=== PATIENT | female | born 1955 | race Caucasian/White ===

== ENCOUNTER 2017-07-31 12:43 | Emergency (ER) | payer OTHER ==
[~2017-07-31] VITALS: Ht 175.3 cm; Wt 113.4 kg
== END 2017-07-31 14:09 | disposition home or self-care (01) ==
LOC: ED 12:43
DX: M79.641 Pain in right hand (principal); J44.9 Chronic obstructive pulmonary disease, unspecified; F17.200 Nicotine dependence, unspecified, uncomplicated; Z88.0 Allergy status to penicillin; W23.0XXA Caught, crushed, jammed, or pinched between moving objects, initial encounter
CPT/HCPCS: 73130; 99283

== ENCOUNTER 2018-11-21 21:24 | Inpatient (IN) | payer OTHER ==
[~2018-11-21] VITALS: Ht 175.3 cm; Wt 128.1 kg
--- NOTE | 2018-11-22 00:32 | NUR ---
admitted at 2345 from ed via stretcher, helped tranfers, up to br w minimum of help, and using cane, O2 4LNC, sob with exertion noted. Received a jenni tx, Coop with admit questions, states she is allergic to all man made meds and polyester, nuts and carrots. COPD PACKAGE given. states she is too tired to have me explain it to her" will continue to reinforce teaching. Pt is homeless, strong body odor, declines a shower. thick, unkept skin
--- NOTE | 2018-11-22 02:00 | NUR ---
WATCHING TV, O2 4L NC, THICK NASAL DISCHARGE PRESENT, MOIST PRODUCTIVE COUGH OF CLEAR THICK PHLEGM NOTED, SOB WITH EXERTION. TOLERATING FLUIDS WELL.
--- NOTE | 2018-11-22 03:57 | NUR ---
RESTING, EYES CLOSED, O2 4L/NC IN PLACE, CPOX TURNED OFF AT HER REQUEST. NO RESP DISTRESS NOTED. PT WAS INCONTINENT OF LIQUID BM EARLIER, DID OWN PERICARE. BED LINEN CHANGED, CLEAN GOWN GIVEN. TOLERATED SANDWICH BOX AND FLUIDS W/O PROBLEMS. TURN SELF IN BED
--- NOTE | 2018-11-22 04:39 | NUR ---
CURRENTLY RESTING, TURNS SELF IN BED. O2 4L NC INPLACE. SOB PRESENT WITH EXERTION EARLIER IN SHIFT. RECEIVED NEB TX. MOIST PRODUCTIVE COUGH PRESENT. PT WAS INCONTINENT OF BOWEL EARLIER. POOR PERSONAL HYGIENE AND STRONG BODY ODOR PRESENT.
--- NOTE | 2018-11-22 07:46 | NUR ---
PT SITTING UP IN BED. ALERT AND ORIENTED, CONCERNED ABOUT BREAKFAST. NO REPORTS ABOUT PAIN OR NAUSEA.
--- NOTE | 2018-11-22 09:49 | NUR ---
PT REFUSES TO DISCUSS QUIT SMOKING EDUCATIONS. SHE IS SITTING UP IN BED ALERT AND ORIENTED. WHEN ASKED IF SHE WOULD LIKE A SHOWER TODAY SHE SAID, "NO!, I DONT NEED ONE." WILL CHECK BACK THIS AFTERNOON ON TAKING A SHOWER. PT DOES NOT REPORT ANY PAIN OR DISCOMFORT, ONLY REQUEST IS COFFEE.
--- NOTE | 2018-11-22 13:20 | NUR ---
R.T. IN TO PLACE OXYGEN ON HUMIDIFIER
--- NOTE | 2018-11-22 14:36 | NUR ---
PT SITTING UP IN BED. REQUESTS A FRIUT SNACK, GAVE PT ROOM PHONE AND MENU WITH INSTRUCTIONS TO HOW TO CALL [facility]. [facility] STAFF INTO PT ROOM TO TAKE DINNER ORDER. PT HAD NO OTHER REQUESTS AT THIS TIME.
--- NOTE | 2018-11-22 16:53 | NUR ---
PT HAS HAD GOOD APPETITE, QUANTITY SUFFICIENT URINE OUT. SHE WAS GIVEN A MG RIDER TODAY FOR LAB OF 1.6 MG. INDEPENDENT IN ROOM. REMAINS ON 4L OXYGEN N.C. WITH HUMIDIFIER. HAS FINE CRACKLES IN BASES AND EXP. WHEEZES THROUGHOUT BILATERLY. HAD CT TO FURTHER INVESTIGATE A NODULE NOTED IN LUNG. PER PT HAS MULTIPLE ALLERGIES AND SPECIAL NEEDS IN REGARDS TO DIET. SHE HAS REFUSED ALL ATTEPMTS BY STAFF TO PROVIDE SMOKING CESSATION EDUCATION. SHE ALSO REFUSED OFFER TO SHOWER TWICE. PT IS HOMELESS.
--- NOTE | 2018-11-22 19:20 | NUR ---
RECEIVED REPORT FROM NU DOLL. PT AWAKE, DRAWING A PICTURE, WHILE SITTING ON HER BED. DENIES NEEDS AT THIS TIME.
--- NOTE | 2018-11-22 20:59 | EKG ---
[facility] [address] [place], [place] [address] Signed Sinus rhythm with premature atrial complexes Low voltage QRS Cannot rule out Anterior infarct , age undetermined Abnormal ECG No previous ECGs available Confirmed by NIKOLE ZAMORA DO ([id number]) on 11/22/2018 8:58:54 PM Electronically Signed By: NIKOLE ZAMORA DO 11/22/18 2059 PATIENT NAME: GABRIELEMARLAMARTHA STANTON Electrocardiogram DATE OF : 53 PHYSICIAN: NIKOLE ZAMORA DO REPORT #: [id number] REPORT IS CONFIDENTIAL AND NOT TO BE RELEASED WITHOUT AUTHORIZATION
--- NOTE | 2018-11-22 21:00 | NUR ---
ASSESSEMENT COMPLETE. PT DOING SUDOKU PUZZLE, REQUESTED MORE, REQUEST GRANTED. PT WITH FRESH DECAF COFFEE, NOTED REDENED UMBILICUS, WHICH NYSTATIN CREAM HAS BEEN ORDERED. ODOR NOTED WELL. PT CONCERNED ABOUT HOW THIS COULD HAPPEN, SHE "NEVER SWEATS". RT IN PREVIOUSLY GIVING NEB TREATMENTS. PT OFFERS NO OTHER NEEDS.
--- NOTE | 2018-11-22 23:43 | NUR ---
PT LAYING ON HER RIGHT SIDE, OCCASSIONAL COUGH HEARD. PREFERS LIGHTS ON, AND CURTAIN OPEN.
--- NOTE | 2018-11-23 02:00 | NUR ---
PT CURRENTLY LAYING ON HER RIGHT SIDE, EYES CLOSED RESP EVEN AND UNLABORED. NEAR MIDNIGHT, HEARD TOLIET FLUSH; NEAR 0100 HEARD PT COUGHING, MOIST NONPRODUCTIVE. RT IN NEAR MIDNIGHT TO ADM. NEB TREATMENT, BUT PT WAS WITH EYES CLOSED, "SLEEPING" HE STATED.
--- NOTE | 2018-11-23 05:16 | NUR ---
WOKE PT VITALS WELL DAILY WEIGHT. AMBULATING W CANE, STEADY, O2 IN PLACE AT 4 L W 941 SATS. COMPLAINS OF A "BAD NIGHT", YET WHEN RN STATES EVERY TIME SHE WAS CHECKED ON SHE WAS SLEEPING, SHE SAID I HAD TO PEE 3 TIMES. (900 IN HAT), CURRENTLY REQUESTING COFFEE.
--- NOTE | 2018-11-23 06:10 | NUR ---
PT INDEPENDENT IN ROOM, USING BATHROOM AND REPOSITIONING. 4L NONCHRONIC O2 WITH SATS IN THE HIGH 80'S-LOW 90'S. MOIST NONPRODUCTIVE COUGH HEARD OFF AND ON THROUGH THE NIGHT. NEBS AT 0000, 0400 WERE HELD D/T PT SLEEPING. PT WITH BODY ODOR, RED UMBILICUS AREA, TREATED WTIH NYSTATIN POWDER; PHARMACY SHOULD BE ABLE TO PROVIDE THE CREAM TODAY. PT DRANK SEVERAL CUPS DECAF COFFEE THIS SHIFT, AND WILL CONTINUE TO DRINK COFFEE OFTEN SHE GETS IT. SHE IS HOMELESS, LIVES IN HER CAR, SMOKES "NATURAL" CIGARETTES, AND IS NOT INTERESTED IN SMOKING CESSATION.
--- NOTE | 2018-11-23 08:04 | NUR ---
PATIENT SITTING UP IN BED, REPORT FROM NIGHT RN. PATIENT STATES " I HAVE TO KEEP MY MIND BUSY, FOR A 63 YEAR OLD IT HAS TO STAY BUSY" PATIENT APPEARED EXCITED FOR BREAKFAST TRAY. LUNG SOUNDS DIMINISHED THROUGHOUT, HAD SLEPT WELL THROUGHOUT NIGHT. ENCOURAGED PATIENT TO USE IS. FULL BODY ASSESMENT DONE. PLAN FOR DAY TO PROVIDE PATIENT WITH SHOWER.
--- NOTE | 2018-11-23 10:00 | NUR ---
SPOKE WITH PATIENT IN ROOM. PATIENT STATES SHE HAS LIVED IN HER CAR SINCE 12/2016. STATES SHE IS ON SSI. STATES SHE HAS HER CELL PHONE, TWO STORAGE UNITS AND CAR INSURANCE AND DOESN'T HAVE ANY LEFT OVER FOR HOUSING. SHE STATES SHE HAS A SON IN THE AREA, AND SOME OTHER FAMILY. DENIES THAT SHE CAN STAY WITH ANY OF THEM. STATES THEY DONT HAVE ROOM OR THE MONEY TO HELP HER. STATES SHE HAS SEEN DR MCCRAY IN THE PAST, BUT NOT FOR SOME TIME AND DOES NOT WANT TO RETURN TO HIS CARE. SHE IS INTERESTED IN GETTING INTO THE CLINIC HERE AT [facility]. SHE STATES SHE DOESN NOT USE MEDICATIONS. SHE TAKES SOME VITAMINS. SHE DENIES HAVING OR NEEDING A NEBULIZER OR OXYGEN IN THE PAST. SHE STATES SHE HAS HELP WITH FOOD FROM [facility], USED TO GET $97/MONTH, BUT WENT DOWN FOR NOVEMBER TO $46/MONTH. SHE STATES SHE DOES NOT NEED A CANE, OR ANY OTHER DEVICES FOR AMBULATION. STATES SHE WENT TO [facility] TO SEE ABOUT LIVING THERE IN THE PAST. DID NOT KNOW ABOUT [facility]. STATES SHE STILL SMOKES, IS NOT INTERESTED IN QUITTING AT THIS TIME. SHE STATES SHE DOES GO STAY AT [facility] WHEN [facility] IS OPEN. DISCUSSED HER WORKING WITH CHW AFTER DISCHARGE. SHE STATES SHE WOULD LIKE TO MEET HER FIRST. DISCUSSED THE SERVICES SHE COULD HELP WITH. SHE IS INTERESTED IN THIS POSSIBILITY. PATIENT STATES SHE HAS A LOT OF EXPENSIVE THINGS IN HER STORAGE UNITS. DISCUSSED IF SHE CONSIDERS SELLING THINGS TO HAVE MONEY TO HELP TAKE CARE OF HER. SHE STATES "NO WAY, IT'S FAMILY HEIRLOOMS". PATIENT STATES SHE HAS BEEN TO [facility] BEFORE. STATES SHE HAD TO REPLACE THE MOTOR IN HER CAR RECENTLY SO SHE COULD HAVE HEAT. [facility] CAR IS DRIV[facility] AT THIS TIME. WILL HAVE CHW START WORKING WITH PATIENT AND WILL FOLLOW FOR DISCHARGE THROUGH CASE MANAGMENT.
--- NOTE | 2018-11-23 13:00 | NUR ---
THIS RN TAKING OVER PT CARE AT THIS TIME. UPON ARRIVAL TO INTRODUCE, PT IS LAYING ON HER SIDE RESTING IN BED WITH NO C/O PAIN. NO QUESTIONS, CONCERNS. DENIES ANY NEEDS TO BE MET AT THIS TIME. CALL LIGHT WITHIN REACH. FALL PRECAUTION IN PLACE. WILL CONTINUE TO MONITOR.
--- NOTE | 2018-11-23 14:15 | NUR ---
ASSESSMENT COMPLETED. PT SITTING UP IN HER BED UPON MY ENTRANCE- PT HAS JUST RETURNED FROM THE BATHROOM WHERE SHE URINATED. PT IS A/O X4, NO C/O PAIN, NO N/V. WHEN I ASKED HOW SHE FEELS ABOUT HER BREATHING, SHE STATES THE "IT FEELS PRETTY GOOD." PT STILL SOMEWHAT TACHYPNEIC AND ON 2 L/MIN O2 VIA NC. LUNGS SOUND DIMINISHED THROUGHOUT ALL LOBES. PT IS ANXIOUS- EMOTIONAL SUPPORT GIVEN WELL THERAPEUTIC COMMUNICATION. PT IS INDEPENDENT ON HER FEET IN THE ROOM. ACTIVE BOWEL SOUNDS. LAST BM WAS YESTERDAY. PT DENIES ANY FURTHER NEEDS TO BE MET AT THIS TIME. SOLUMED GIVEN THROUGH PIV WHICH FLUSHES WELL WITH GOOD BLOOD RETURN. EDUCATION GIVEN ON IMPORTANCE OF HYGIENE WHILE IN HOSPITAL BUT PT IS REFUSING MY ASSISTANCE AT THIS TIME WITH HELP GETTING CLEAN. WILL RETRY LATER. CALL LIGHT WITHIN REACH. WILL CONTINUE TO MONITOR.
--- NOTE | 2018-11-23 16:11 | NUR ---
PT SITTING UP IN BED WITH 2 L/MIN O2 VIA NC IN PLACE. PT REMAINS PLEASANT AND COOPERATIVE- SHE'S LESS ANXIOUS THAN SHE WAS 2 HOURS AGO. SHE DENIES ANY NEEDS TO BE MET. NO PAIN AND SHE STATES THAT HER BREATHING "IS OKAY." CALL LIGHT WITHIN REACH. WILL CONTINUE TO MONITOR.
--- NOTE | 2018-11-23 18:26 | NUR ---
PT REMAINS PLEASANT, SITTING UP IN BED WITH NO QUESTIONS, CONCERNS OR REQUESTS. SHE STATES THAT SHE FEELS LIKE HER BREATHING "IS FINE." SHE'S STILL NOT WANTING TO TAKE A SHOWER DESPITE OUR STAFF EFFORTS. CALL LIGHT WITHIN REACH. FALL PRECAUTIONS IN PLACE. WILL CONTINUE TO MONITOR.
--- NOTE | 2018-11-23 19:29 | NUR ---
RECIEVED CHANGE OF SHIFT REPORT FROM ACOSTA DOLL. PATIENT LAYING AWAKE IN BED. WHITE BOARD UPDATED. FRESH COFFEE BROUGHT TO PATIENT PER PATIENT REQUEST. NO MORE NEEDS AT THIS TIME.
--- NOTE | 2018-11-23 19:30 | NUR ---
RECEIVED REPORT FROM SHARMILA LOUIE CHARGE. PT IN BED ON PHONE. NO NEEDS AT THIS TIME.
--- NOTE | 2018-11-23 21:55 | NUR ---
ASSESSMENT COMPLETE. SCHEDULED MEDICATIONS ADMINISTERED PER MAR ORDER. PATIENT DENIES PAIN, SOB, DIFFICULTY BREATHING OR CHEST PAIN. SCHEDULED NYSTATIN CREAM APPLIED TO UMBILICAL REGION. IV ASSESSED TO BE PATENT, WNL. ENCOURAGED PATIENT TO USE IS AND ACCAPELLA, PATIENT EXPRESSED THAT SHE USES DEVICES REGULARLY. DIMINISHED, FINE CRACKLES IN BASES OF LUNGS, ENCOURAGED I.S. PATIENT DRAWING PICTURES WITH PEN AND PAPER AT BEDSIDE. FRESH COFFEE BROUGHT TO PATIENT PER PATIENT REQUEST. CALL LIGHT WITHIN REACH. NO MORE NEEDS AT THIS TIME.
--- NOTE | 2018-11-24 00:33 | NUR ---
ROUNDED ON PATIENT RESTING IN BED, LAYING ON LEFT SIDE, RESPIRATORY RATE IS EVEN AND UNLABORED. CALL LIGHT WITHIN REACH. POSSESSIONS AT BEDSIDE.
--- NOTE | 2018-11-24 02:20 | NUR ---
ROUNDED ON PATIENT. PATIENT RESTING ON LEFT SIDE, RESIRATORY RATE IS EVEN AND UNLABORED. CALL LIGHT WITHIN REACH. POSSESSIONS AT BEDSIDE.
--- NOTE | 2018-11-24 03:48 | NUR ---
ROUNDED ON PATIENT RESTING IN BED WITH EYES CLOSED, RESPIRATORY RATE EVEN AND UNLABORED. NO SIGN OF TENSING OR GRIMACING. HAT IN TOLIET EMPTIED. CALL LIGHT WITHIN REACH.
--- NOTE | 2018-11-24 05:10 | NUR ---
ROUNDED ON PATIENT FOR ASSESSMENT. PATIENT DENIES PAIN, SOB, DIFFICULTY BREATHING OR CHEST PAIN. SINTA RECREATIONAL THERAPIST IN ROOM TO OBTAIN VITALS, INTAKE AND OUTPUT AND DAILY WEIGHT. ENCOURAGED PATIENT TO USED INCENTIVE SPIROMETER, DIMINISHED/FINE CRACKLES NOTED IN BASES OF LUNGS. PATIENT DENIES NUMBNESS AND TINGLING IN EXTREMITIES. FRESH COFFEE BROUGHT TO PATIENT. THERAPEUTIC COMMUNICATION PROVIDED TO PATIENT PATIENT WAS UPSET ABOUT FINDING A WAY TO GET HAVE HER PERSONAL CLOTHES CLEANED, CHARGE NURSE NOTIFED OF PATIENTS CONCERNS. CALL LIGHT WITHIN REACH. NO MORE NEEDS AT THIS TIME.
--- NOTE | 2018-11-24 06:00 | NUR ---
PATIENT SLEPT THROUGHTOUT SHIFT. 2L VIA NC. INDEPENDENT IN ROOM WITH CANE. SCHEDULED NEB TREATMENTS. REDNESS IN UMBILLICUS, SCHEDULED NYSTATIN CREAM PROVIDED. DAILY WEIGHT. REGULAR DIET. IS AND ACCAPELLA AT BEDSIDE.
--- NOTE | 2018-11-24 06:46 | NUR ---
rounded on patient for medication adminstration per dec order. fresh water brought to patient. patient exhibited congested cough. call light within reach. no more needs at this time.
--- NOTE | 2018-11-24 07:40 | NUR ---
0720 Report recieved from Ankita DOLL. Pt sitting up in her bed with her call light and personal items within reach.
--- NOTE | 2018-11-24 10:45 | NUR ---
MED REC COMPLETE
--- NOTE | 2018-11-24 11:23 | NUR ---
Pt resting in her bed doing work puzzles at this time. Sat 92 to 94% on 2l via nc with humidification. O2 decreased to 1l. Pt states "my breathing feels great".
--- NOTE | 2018-11-24 11:31 | NUR ---
PT REQUESTED MORE PUZZLES. FOUND MORE, AND HAD SHARMILA LOUIE GIVE THEM TO HER. WILL CONTINUE TO LOOK FOR MORE.
--- NOTE | 2018-11-24 12:10 | NUR ---
Pt sleeping and her sat is 97% on 1l via nc. O2 turned off at this time.
--- NOTE | 2018-11-24 12:17 | NUR ---
PT ENCOURAGED TO AMBULATE IN HALLWAY, PT DECLINED, STATED THAT SHE WOULD WALK AFTER SHE FINISHED HER NAP.
--- NOTE | 2018-11-24 12:32 | NUR ---
PT ON RA, SLEEPING SOUNDLY, OXYGEN SATURATION LEVEL 92-94% ON RA.
--- NOTE | 2018-11-24 15:10 | NUR ---
SAT 90-91% ON ROOM AIR AT REST. PT WALKED TO THE END OF THE [place]ENT[place] AND SET IN A WC AT WHICH TIME HER SAT WAS 88% AND INCREASED TO 90-91 IN ABOUT 30 SECONDS. PT WALKED BACK TO HER ROOM AND HER SAT WAS 87% AND INCREASED BACK TO 90% IN ABOUT 30 SECONDS.
--- NOTE | 2018-11-24 18:42 | NUR ---
PT SITTING UP ON BED, COLORING AND WATCHING TV. PROVIDED PT WITH FRESH COFFEE PER HER REQUEST. PT DENIED OTHER NEEDS.
--- NOTE | 2018-11-24 19:10 | NUR ---
RECIEVED REPORT FROM KRISTINA DOLL AND MADELYN DOLL. PATIENT SITTING UP IN BED. CALL LIGHT WITHIN REACH. WHITE BOARD UPDATED. NO MORE NEEDS AT THIS TIME.
--- NOTE | 2018-11-24 19:40 | NUR ---
CHARGE NURSE REPORT RECEIVED. PT SITTING UP IN BED, WORKING ON PUZZLE ON HER PHONE.
--- NOTE | 2018-11-24 20:00 | NUR ---
PUT PT'S BLACK AND WHITE SKIRT INTO A TUB WITH SHAMPOO AND HOT WATER TO WASH THE "POOP" OUT. FAIRLY SOILED IN ONE GENERAL AREA.
--- NOTE | 2018-11-24 21:16 | NUR ---
PT SITTING UP IN BED, VITALS AND I/O COMPLETE. PT ON ROOM AIR, WITH SATS AT 92. UNSURE IF SHE IS GOING TO "KEEP THE SKIRT" SINCE THE "POOP" IS ALL THROUGH THE FIBERS NOW.
--- NOTE | 2018-11-24 21:58 | NUR ---
ASSESSMENT COMPLETE. ROOM AIR. SCHEDULED MEDICATION ADMINSTRATION COMPLETE PER ORDER. SCHEDULED NYSTATIN CREAM APPLIED TO SLIGHTLY PINK UMBILICAL REGION. PATIENT DENIES SOB, DIFFICULTY BREATHING, OR CHEST PAIN. IV ASSESSED TO BE PATENT, WNL. FRESH COFFEE BROUGHT TO PATIENT. CALL LIGHT WITHIN REACH. NO MORE NEEDS AT THIS TIME.
--- NOTE | 2018-11-25 00:25 | NUR ---
ROUNDED ON PATIENT RESTING IN BED ON LEFT SIDE, RESPIRATORY RATE IS EVEN AND UNLABORED. MUSIC PLAYING IN ROOM. CALL LIGHT WITHIN REACH.
--- NOTE | 2018-11-25 00:27 | NUR ---
AISHA GRAF FINISHED WASHING PT SKIRT AND CURRENTLY SKIRT IS HANGING IN SHOWER TO DRY. PT AWARE.
--- NOTE | 2018-11-25 00:48 | NUR ---
V/S AND I&O DONE AND CHARTED. WASHED SOILED SKIRT AND HANGED IN THE BATHROOM. NO OTHER NEEDS AT THE MOMENT.
--- NOTE | 2018-11-25 03:20 | NUR ---
ASSESSMENT COMPLETE. PATIENT DENIES CHEST PAIN, SOB, DIFFICULTY BREATHING. IV ASSESSED TO BE PATENT, WNL. ACTIVE BOWEL TONES. PATIENT EXHIBITED CONGESTED COUGH, THAT IS NONPRODUCTIVE. PATIENT DENIES PAIN. DIMINISHED LUNG SOUNDS IN BASES. [facility]. FRESH COFFEE BROUGHT TO PATIENT. CALL LIGHT WITHIN REACH. NO MORE NEEDS AT TIME.
--- NOTE | 2018-11-25 06:57 | NUR ---
independent in room. room air. pt/ot. regular diet. is and acapella. daily weight. scheduled nystatin cream on light pink umbillical region.
--- NOTE | 2018-11-25 07:27 | NUR ---
RECIEVED BEDSIDE REPORT FROM SHARMILA PACHECO. PT AWAKE, SITTING UP IN BED COLORING. PERSONAL SUPPLIES AND CALL LIGHT IN REACH.
--- NOTE | 2018-11-25 07:42 | NUR ---
PATIENT SITTING UP IN BED, CALL LIGHT IN REACH. PATIENT REFUSED AM CARE, NO OTHER NEEDS AT THIS TIME.
--- NOTE | 2018-11-25 07:56 | NUR ---
CHW CONTACTED [employer] AND THEY HAVE TRIED TO WORK WITH PATIENT MULTIPLE TIMES WITH THE MOVING FORWARD PROGRAM BUT SHE NEVER FOLLOWS THROUGH WITH THE PROCESS AND OR SHOWS UP TO ACCEPT THE HELP. [employer] HAS PROVIDED MULTIPLE RESOURCES TO PATIENT IN THE PAST AND IS WILLING TO HELP PATIENT.
--- NOTE | 2018-11-25 07:56 | NUR ---
CHW MET WITH PATIENT IN INPATIENT ROOM AT [facility]. CHW DISCUSSED PATIENT PAST HISTORY AND THE REASONING FOR PATIENT CURRENTLY LIVING IN A CAR. PATIENT STATED SHE CHOOSES TO LIVE IN A CAR SO HER SON AND GRAND KIDS COULD HAVE A PLACE TO LIVE. SHE DOES NOT WANT TO WORK WITH [employer] AND OR ACCEPT ANY HELP FROM [employer] BECAUSE THEY HELPED HER GRANDDAUGHTER GET TAKEN AWAY BY CPS. PATIENT STATED SHE HAS TO LIVE IN THIS AREA DUE TO HER SON WORKING AND NEEDING TO WATCH HER GRAND KIDS. PATIENT STATED SHE IS ON THE WAITING LIST FOR [facility] [place]. PATIENT STATED SHE DOES NOT WANT TO RENT A ROOM FROM ANYONE AND DOES NOT WANT A STUDIO APARTMENT. SHE SAID SHE CHOOSES TO LIVE IN HER VEHICLE ON HER OWN TERMS. SHE DOES HAVE A HOUSE BUT SHE ALLOWED HER SON AND DAUGHTER IN LAW TO MOVE INTO IT SO HER GRAND KIDS COULD HAVE A HOME.
--- NOTE | 2018-11-25 09:22 | NUR ---
PT ATE 100% OF BREAKFAST. RESTING QUITLY IN BED, AROUSED TO VERBAL STIMULI. PT ON RA, HAS A CONGESTED COUGH, NON PRODUCTIVE. PERSONAL SUPPLIES AND CALL LIGHT IN REACH.
--- NOTE | 2018-11-25 09:50 | NUR ---
PATIENT STATES SHE "FEELS LIKE I CANT EVEN BREATH ANYMORE. EVERYTIME THEY GIVE ME A TREATMENT IT MAKES IT WORSE". PATIENT HAS DEEP DRY COUGH, RN NOTIFIED.
--- NOTE | 2018-11-25 09:53 | NUR ---
PATIENT RESTING IN BED, CALL LIGHT IN REACH. PATIENT COMPLAINS OF CONSISTENT COUGHING. RN NOTIFIED.
--- NOTE | 2018-11-25 10:10 | NUR ---
PT RESTING IN BED, AISHA TURPIN NOTIFIED THIS RN THAT PT'S OXYGEN SATURATION LEVEL WAS IN 80s, THIS RN IN TO ASSESS PT. PT'S OXYGEN SATURATION LEVEL WAS 86% ON RA AT REST. PLACED PT ON 1L O2 VIA NC, OXYGEN SATURATION LEVEL UP TO 90% WITHING APROXIMATLEY 40 SECONDS. PT REPORTED THAT HER BREATHING HAS FELT "WORSE SINCE THAT LAST BREATHING TREATMENT I HAD LAST NIGHT". STATED THAT SHE THINKS THAT THE BREATHING TREATMENTS ARE MAKING HER WORSE. PROVIDED MEDICATION EDUCATION. ENCOURAGED PT TO DISCUSS THIS FURTHER WITH DR. DIANE WHEN HE ROUNDS.
--- NOTE | 2018-11-25 11:07 | NUR ---
DR. DIANE ROUNDED ON PT. PT ON 1L O2 VIA NC, SATURATION LEVEL 93%. PT EXPRESSED THAT SHE FELT THAT HER ALLERGIES ARE BEING EXACERBATED BY THE NEB TREATMENTS, STATED THAT SHE WANTS A BREAK FROM THEM. DR. DIANE TOLD PT THAT SHE CAN DECLINE THIS IF SHE DOES NOT WANT THE TREATMENT WHEN OFFERED, ALTHOUGH HE DID ENCOURAGE PT TO TAKE THEM.
--- NOTE | 2018-11-25 13:20 | NUR ---
PT SITTING UP IN BED, COLORING. OXYGEN SATURATION 90% ON 1L O2 VIA NC.
--- NOTE | 2018-11-25 13:40 | NUR ---
PATIENT SITTING UP IN BED, CALL LIGHT IN REACH. PATIENT IN GOOD MOOD, NO OTHER NEEDS AT THIS TIME.
--- NOTE | 2018-11-25 13:46 | NUR ---
TRIED NUMEROUS TIMES TO CONNECT WITH PT-ALWAYS ON PHONE. WILL CONTINUE TO TRY AGAIN.
--- NOTE | 2018-11-25 16:12 | NUR ---
PT SITTING UP IN BED, PLAYING POWWOWU. PROVIDED PT WITH FRESH COFFEE. PERSONAL SUPPLIES AND CALL LIGHT IN REACH.
--- NOTE | 2018-11-25 16:58 | NUR ---
PT AMBULATED IN HALLWAY FROM ROOM 119 TO PAINTING AT END OF [place]. PRIOR TO BEGINING AMBULATION, PT'S OXYGEN SATURATION LEVEL 97% ON 1L O2 VIA NC, ON REACHING END OF BENT[place], SATURATION LEVEL 94%. PT RESTED THERE FOR APROXIMATELY 4 MINUTES TO GIVE LEGS A REST, THEN AMBULATED BACK TO ROOM 119. ON ARRIVAL TO ROOM 119, SATURATION LEVEL ON 1L 87%, WHICH INCREASED TO 90% AT REST AFTER APROXIMATELY 45 SECONDS. PT RESTING IN BED.
--- NOTE | 2018-11-25 17:21 | NUR ---
PATIENT SITTING UP IN BED PLAYING ON TABLET. CALL LIGHT IN REACH. NO OTHER NEEDS AT THIS TIME.
--- NOTE | 2018-11-25 18:23 | NUR ---
PT SITTING UP IN BED, COLORING. ON 1L O2 VIA NC, SATURATION LEVEL 92%. PT DENIED NEEDS. ATE 100% OF DINNER, TOLERATED WELL. PERSONAL SUPPLIES AND CALL LIGHT IN REACH.
--- NOTE | 2018-11-25 19:43 | NUR ---
pt sitting up in chair, coop with assessment. o2 1lnc, lungs with insp/exp crackles, states that "man made meds/tx/nebs are making her more sick that before she came in to hosp and that she is lying on polyester and her body is not tolerating it. c/o rash over her arms and legs.", reassured w/o success. Rash over body much improved as noted visually as this nurse admitted pt a few days ago. fresh coffee given.
--- NOTE | 2018-11-25 23:00 | NUR ---
SITTING UP IN BED, O2 IN PLACE, NO RESP DISTRESS, FRESH CUP OF COFFEE GIVEN, NO OTHER REQUESTS, INDEPENDENT IN ROOM,
--- NOTE | 2018-11-25 23:31 | NUR ---
V/S AND I&O DONE AND RECORDED.
--- NOTE | 2018-11-26 00:47 | NUR ---
RESTING, NO DISTRESS, O2 IN PLACE. CALL LIGHT WITHIN HANDS REACH
--- NOTE | 2018-11-26 03:59 | NUR ---
RESTING, EYES CLOSED, O2 INPLACE, NOR [place] DISTRESS, CALL LIGHT AT BEDSIDE
--- NOTE | 2018-11-26 05:47 | NUR ---
CURRENTLY RESTING, O2 1LNC, MOIST PRODUCTIVE COUGH PRESENT, LUNGS WITH CRACKLES AND EXP WHEEZING, SOLUMEDRON IV GIVEN. GETS UP INDEPENDENTLY, VOIDING QS. NO C/O PAIN, SCATTERED PINK SPOTS PRESENT OVER LEGS AND ARMS, WERE PRESENT DURING ADMIT BUT DECREASED COLOR PRESENT. CONTINUES TO C/O WANTING TO GO HOME SHE IS GFETTING WORSE FROM THE MAN MADE MEDS SHE HAS BEEN GETTING WHILE HOSPITALIZED. TOLERATING DIET AND FLUIDS W/O PROBLEMS
--- NOTE | 2018-11-26 06:51 | NUR ---
PT TITRATED TO ROOM AIR, SATS 94% 1L NC. AFTER 15-20 MINUTES SATS WERE 92%, PT SITTING UP IN BED PLAYING SOLITAIRE ON HER TABLET.
--- NOTE | 2018-11-26 07:42 | NUR ---
REPORT RECEIVED FROM FISHER MUSSEL RN. PT AWAKE IN BED. AAO. ON RA. RESPIRATIONS ARE EQUAL AND NONLABORED. CALL LIGHT IN REACH. NO NEEDS AT THIS TIME.
--- NOTE | 2018-11-26 09:00 | NUR ---
PT REFUSED BREATHING TREATMENT STATING "IT MAKES MY BREATHING WORSE". CALL LIGHT IN REACH. DENEIS FURTHER NEEDS.
--- NOTE | 2018-11-26 10:23 | NUR ---
PT UP WITH PT. TOLERATING WELL. SATURATION 92% WITH ACTIVITY. BACK TO BED CALL LIGHT IN REACH.
--- NOTE | 2018-11-26 12:44 | NUR ---
ASKED PATIENT IF SHE WOULD LIKE TO TAKE A SHOWER AND SHE SAID IT DEPENDS IF SHE GETS TO GO HOME TODAY. CHANGED HER BED LINENS.
[2018-11-26] MEDS ORDERED: PREDNISONE20 MG PO (13:18)
== END 2018-11-26 15:10 | disposition home or self-care (01) | DRG 189 ==
LOC: ED 21:24 → MS 21:25
PROVIDERS: ADMIT Student in an Organized Health Care Education/Training Program
DX: J96.01 Acute respiratory failure with hypoxia (principal); J44.1 Chronic obstructive pulmonary disease with (acute) exacerbation; E87.3 Alkalosis; Z68.41 Body mass index [BMI] 40.0-44.9, adult; I10 Essential (primary) hypertension; F17.210 Nicotine dependence, cigarettes, uncomplicated; E66.9 Obesity, unspecified; R91.8 Other nonspecific abnormal finding of lung field; R73.9 Hyperglycemia, unspecified; T38.0X5A Adverse effect of glucocorticoids and synthetic analogues, initial encounter; T36.3X5A Adverse effect of macrolides, initial encounter; Y92.239 Unspecified place in hospital as the place of occurrence of the external cause; E87.5 Hyperkalemia; Z88.8 Allergy status to other drugs, medicaments and biological substances; Z59.0 Homelessness; Z88.0 Allergy status to penicillin
CPT/HCPCS: 36415; 71045; 71250; 80048; 80053; 83735; 83880; 84100; 85025; 87502; 93005; 93010; 94640; 94644; 94667; 94668; 94762; 96374; 96375; 96376; 97116; 97162; 97165; 99285-25; 99406; G0378; J0456; J1650; J2930; J3475; J7512

== ENCOUNTER 2021-07-06 10:08 | Emergency (ER) | payer MEDICARE, OTHER ==
[~2021-07-06] VITALS: Ht 175.3 cm; Wt 127.9 kg
[~2021-07-06 10:08] MED LIST: PREDNISONE20 MG PO
--- OUTSIDE RECORDS SUMMARY | 2021-07-06 10:10 | XMS ---
PreManage Notification: MARTHA MULLIGAN Security Commercial Lending Relationship Manager Events No recent Security Events currently on file CRITERIA MET - Group Notification - PDMP CARE PROVIDERS Jim Celine Employment Security Officer/Title Vehicle Service Attendant 05/25/2021-Current PHONE: [phone] JODIE MCCRAY [facility] 11/25/2018-Current PHONE: [phone] Rehana has no Care Guidelines for this patient. Loreta VISIT COUNT (12 MO.) Dot Yo TOTAL 1 NOTE: Visits indicate total known visits. ED/UCC VISIT TRACKING (12 MO.) 07/06/2021 10:09 [facility] [place] TYPE: Emergency COMPLAINT: - LOSS OF APPETITE INPATIENT VISIT TRACKING (12 MO.) No inpatient visits to display in this time frame [email or web address]
[2021-07-06] MEDS ORDERED: ONDANSETRON ODT8 MG PO (11:56)
[2021-07-06] MEDS ORDERED: INLYTA5 MG PO (13:07)
== END 2021-07-06 12:45 | disposition home or self-care (01) ==
LOC: ED 10:08
DX: A08.4 Viral intestinal infection, unspecified (principal); F17.200 Nicotine dependence, unspecified, uncomplicated; Z85.528 Personal history of other malignant neoplasm of kidney; Z90.5 Acquired absence of kidney; Z88.0 Allergy status to penicillin; Z79.52 Long term (current) use of systemic steroids
CPT/HCPCS: 51701; 80053; 81001; 85025; 99285-25; J2405; J7121

== ENCOUNTER 2022-09-19 10:13 | Emergency (ER) | payer MEDICARE, OTHER ==
[~2022-09-19] VITALS: Ht 175.3 cm; Wt 126.5 kg
[~2022-09-19 10:13] MED LIST changes: +INLYTA5 MG PO; +ONDANSETRON ODT8 MG PO
--- OUTSIDE RECORDS SUMMARY | 2022-09-19 10:16 | XMS ---
PreManage Notification: MARTHA MULLIGAN Security Social Service Director Events No recent Security Events currently on file CRITERIA MET - Group Notification CARE PROVIDERS GRISEL MULLINSiatrist Current KEIRY Ann PHONE: [phone] CRAIG PARIS Internal Medicine Current PHONE: [phone] KASHIF RENEE Nurse Practitioner Current PHONE: [phone] Celine Fernandez Soundscriber Mechanic/Implementation Coordinator 08/20/2022-Current PHONE: [phone] JODIE MCCRAY Family Medicine 11/25/2018-Current PHONE: Unknown JAZZMINE MACDONALD Family [facility] Current PHONE: [phone] KYAW TOMLINSON Nurse Practitioner: Family Current PHONE: Unknown LENCHO PATRICK Internal Medicine Current PHONE: [phone] SANDI ESTRADA Nurse Practitioner Current PHONE: [phone] TALISHA HOFFMAN I. Physician Insemination Worker Current PHONE: Unknown CARMINE RICHARDSON Nurse Practitioner Current PHONE: Unknown SALO DENTON Nurse Practitioner Carlos TAPIA PHONE: [phone] CRISTIANO RUTH [employer] Current PHONE: Unknown [facility] PHONE: [phone] PALLAVI SALDIVAR Physician Insemination Worker Current PHONE: Unknown Rehana has no Care Guidelines for this patient. Loreta VISIT COUNT (12 MO.) 2 AMY Yo TOTAL 2 NOTE: Visits indicate total known visits. ED/UCC VISIT TRACKING (12 MO.) 09/19/2022 10:14 AYM Martin TYPE: Emergency COMPLAINT: - EXTREMITY PAIN/INJURY 02/04/2022 11:22 AMY Martin TYPE: Emergency COMPLAINT: - WEAKNESS DIAGNOSES: - Other adjunct faculty for medical terminology (current) drug therapy - Cholecystitis, unspecified - Allergy status to penicillin - Chronic obstructive pulmonary disease, unspecified - Nicotine dependence, unspecified, uncomplicated - Weakness - Contact with and (suspected) exposure to COVID-19 - Acute kidney failure, unspecified - Sepsis, unspecified organism - Other allergy status, other than to drugs and biological substances INPATIENT VISIT TRACKING (12 MO.) 02/04/2022 21:22 [facility] TYPE: General Medicine COMPLAINT: - Acute cholecystitis DIAGNOSES: - Cholecystitis, unspecified - Severe sepsis without septic shock - Sepsis, unspecified organism - Other specified abnormal findings of blood chemistry - Acute cholecystitis [id number]
[2022-09-19] MEDS ORDERED: CABOMETYX60 MG PO (10:28)
[2022-09-19] MEDS ORDERED: HYDROCORTISONE20 MG PO (10:29)
[2022-09-19] MEDS ORDERED: CEPHALEXIN500 M1 PO (13:17)
== END 2022-09-19 14:34 | disposition home or self-care (01) ==
LOC: ED 10:13
PROC: 0T9B70Z Drainage of Bladder with Drainage Device, Via Natural or Artificial Opening (ICD-10-PCS; principal; 2022-09-19)
DX: L03.116 Cellulitis of left lower limb (principal); J44.9 Chronic obstructive pulmonary disease, unspecified; F17.200 Nicotine dependence, unspecified, uncomplicated; Z88.0 Allergy status to penicillin; Z79.899 Other long term (current) drug therapy
CPT/HCPCS: 51701; 73630; 82024; 82570; 84156; 84550; 85025; 99283-25; A9270; J0690

== ENCOUNTER 2024-12-26 16:58 | Inpatient (IN) | payer MEDICARE, OTHER ==
[~2024-12-26] VITALS: Ht 175.3 cm; Wt 123.9 kg
[~2024-12-26 16:58] MED LIST changes: +CABOMETYX60 MG PO; +CEPHALEXIN500 M1 PO; +HYDROCORTISONE20 MG PO
--- OUTSIDE RECORDS SUMMARY | 2024-12-26 17:05 | XMS ---
PreManage Notification: MARTHA MULLIGAN Security Business Planning Analyst Events No recent Security Events currently on file CRITERIA MET - Group Notification CARE PROVIDERS -, [facility]ist: Car Ferry Captain [facility] [place] PHONE: [phone] -[place]- Dentist: Car Ferry Captain [facility] PHONE: [phone] GRISEL MULLINS Slip Cover Estimatoreve Ann PHONE: [phone] CRAIG PARIS Internal Medicine Current PHONE: Unknown KASHIF RENEE Nurse Practitioner Current PHONE: [phone] KYAW TOMLINSON Nurse Practitioner: Family Current PHONE: [phone] LENCHO PATRICK Internal Medicine Current PHONE: [phone] SANDI ESTRADA Nurse Practitioner: Family Current PHONE: [phone] TALISHA HOFFMAN I. Physician Trucking Manager Current PHONE: Unknown CARMINE RICHARDSON Nurse Practitioner Current PHONE: Unknown SALO DENTON Nurse Practitioner Carlos TAPIA PHONE: [phone] CRISTIANO DODGE [facility] Current PHONE: Unknown LALA [facility] Current PHONE: Unknown PALLAVI SALDIVAR Physician Trucking Manager Current PHONE: Unknown Rehana has no Care Guidelines for this patient. Loreta VISIT COUNT (12 MO.) 1 MAY Yo TOTAL 1 NOTE: Visits indicate total known visits. ED/UCC VISIT TRACKING (12 MO.) 12/26/2024 16:59 AMY Tee [place] TYPE: Emergency COMPLAINT: - CHEST PAIN INPATIENT VISIT TRACKING (12 MO.) No inpatient visits to display in this time frame [id number]
[2024-12-26] MEDS ORDERED: ALBUTEROL/IPRATROPIUM 3 ML NEB INH ONE (17:15)
[2024-12-26 17:19] LABS: BASOPHILS 0.5 % (0-2); EOSINOPHILS 2.2 % (0-6); HEMATOCRIT 43.1 % (35.0-50.0); HEMOGLOBIN 14.2 g/dL (12.0-18.0); LYMPHOCYTES 18.7 % (24-44); MCV 81.8 fl (81-99); MONOCYTES 5.2 % (0-12); NEUTROPHILS 73.4 % (39-80); PLATELET COUNT 192 K/uL (140-440); RBC 5.27 M/ul (4.3-5.7)
[2024-12-26 17:41] LABS: ALBUMIN 3.7 g/dL (3.4-5.0); ALBUMIN/GLOBULIN RATIO 0.88 (1.1-2.4); BILIRUBIN, TOTAL 0.7 mg/dL (0.2-1.0); BUN/CREATININE RATIO 15.49 (6.0-28.6); CALCIUM 9.3 mg/dL (8.5-10.1); CREATININE, SERUM 0.71 mg/dL (0.55-1.02); MAGNESIUM 1.6 mg/dL (1.8-2.4); PROTEIN, TOTAL 7.9 g/dL (6.4-8.2)
[2024-12-26] MEDS ORDERED: HYDROmorphone HCL 1 MG/ML SYR IV ONE (19:30)
[2024-12-26] MEDS ORDERED: ondansetron HCL 4 MG/2 ML VIAL IV ONE (19:30)
[2024-12-26] MEDS ORDERED: AZITHROMYCIN 500 MG in DEXTROSE 5% 250 ML IV ONE (21:30)
[2024-12-26] MEDS ORDERED: methylPREDNISolone SOD SUCC 125 MG/2 ML VIAL IV ONE (21:30)
[2024-12-26] MEDS ORDERED: ondansetron HCL 4 MG/2 ML VIAL IV PRN (21:30)
[2024-12-26] MEDS ORDERED: ACETAMINOPHEN 325 MG TAB PO PRN (21:30)
[2024-12-26] MEDS ORDERED: DEXTROSE 5% 250 ML IV ONE (22:22)
[2024-12-26] MEDS ORDERED: BUDESONIDE 0.5 MG/2 ML VIAL INH SCH (22:30)
[2024-12-26] MEDS ORDERED: ALBUTEROL SULFATE 0.083% 3 ML VIAL INH PRN (22:30)
[2024-12-26 22:33] LABS: INFLUENZA B NAA NEGATIVE (NEGATIVE); RESPIRATORY SYNCYTIAL VIR NAA NEGATIVE (NEGATIVE)
[2024-12-26 23:09] VITALS: BP 147/73
[2024-12-26 23:20] LABS: BASE EXCESS, BLOOD GAS 1.4 mmol/L (-2-2); HCO3, BLOOD GAS 32.5 mmol/L (22-26); O2 SATURATION, BLOOD GAS 88.7 % (95.0-100.0); PCO2, BLOOD GAS 85.3 mmHg (35-45); PH, BLOOD GAS 7.19 (7.35-7.45); PO2, BLOOD GAS 64 mmHg (80-100); TOTAL CO2, BLOOD GAS 35.2
[2024-12-26 23:21] LABS: OXYGEN RECEIVED, BLOOD GAS 6L
[2024-12-26] MEDS ORDERED: LORazepam 2 MG/ML VIAL IV PRN (23:45)
[2024-12-27] VITALS (25 sets, daily range): BP systolic 85–172; BP diastolic 48–161
[2024-12-27] MEDS ORDERED: ALBUTEROL/IPRATROPIUM 3 ML NEB INH SCH ×3 (02:00→08:00)
[2024-12-27 05:22] LABS: BASOPHILS 0.1 % (0-2); HEMATOCRIT 40.4 % (35.0-50.0); HEMOGLOBIN 13.2 g/dL (12.0-18.0); LYMPHOCYTES 2.5 % (24-44); MCH 27.1 (27-36); MCHC 32.7 g/dl (30-36); MCV 82.9 fl (81-99); NEUTROPHILS 96.4 % (39-80); PLATELET COUNT 193 K/uL (140-440); RBC 4.88 M/ul (4.3-5.7); RDW 16.5 (10.5-15.0)
[2024-12-27 05:41] LABS: ALBUMIN 3.2 g/dL (3.4-5.0); ALBUMIN/GLOBULIN RATIO 0.8 (1.1-2.4); ANION GAP 9.8 (7-21); BILIRUBIN, TOTAL 0.8 mg/dL (0.2-1.0); BUN/CREATININE RATIO 14.7 (6.0-28.6); CALCIUM 8.8 mg/dL (8.5-10.1); CREATININE, SERUM 0.68 mg/dL (0.55-1.02); MAGNESIUM 1.6 mg/dL (1.8-2.4); POTASSIUM 4.8 mmol/L (3.5-5.1); PROTEIN, TOTAL 7.2 g/dL (6.4-8.2)
[2024-12-27 07:53] LABS: BASE EXCESS, BLOOD GAS 5.6 mmol/L (-2-2); HCO3, BLOOD GAS 34.8 mmol/L (22-26); O2 SATURATION, BLOOD GAS 94.1 % (95.0-100.0); OXYGEN RECEIVED, BLOOD GAS 40%; PCO2, BLOOD GAS 69.9 mmHg (35-45); PO2, BLOOD GAS 67 mmHg (80-100)
[2024-12-27] MEDS ORDERED: MAGNESIUM SULFATE 2 GM/50 ML BAG IV SCH (08:15)
[2024-12-27] MEDS ORDERED: ENOXAPARIN SODIUM 40 MG/0.4 ML SYR SUB-Q SCH (09:53)
[2024-12-27] MEDS ORDERED: methylPREDNISolone SOD SUCC 125 MG/2 ML VIAL IV SCH (09:54)
[2024-12-27] MEDS ORDERED: ACETAMINOPHEN 325 MG TAB PO PRN (10:00)
[2024-12-27] MEDS ORDERED: ondansetron HCL 4 MG/2 ML VIAL IV PRN (10:00)
[2024-12-27] MEDS ORDERED: SODIUM CHLORIDE 0.9% 1,000 ML IV SCH (10:00)
--- NOTE | 2024-12-27 10:04 | EKG ---
[facility] [address] [place] [address] Signed Normal sinus rhythm with sinus arrhythmia Low voltage QRS Incomplete right bundle branch block Cannot rule out Anterior infarct (cited on or before 21-NOV-2018) Abnormal ECG When compared with ECG of 04-FEB-2022 12:14, No significant change was found Confirmed by Daylin Plasencia MD () on 12/27/2024 10:04:04 AM Electronically Signed By: DAYLIN PLASENCIA MD 12/27/24 1004 PATIENT NAME: MARTHA MULLIGAN Electrocardiogram DATE OF : 53 PHYSICIAN: DAYLIN PLASENCIA MD REPORT #: [id number] REPORT IS CONFIDENTIAL AND NOT TO BE RELEASED WITHOUT AUTHORIZATION
[2024-12-27] MEDS ORDERED: PHARMACY RENAL DOSE ADJUSTMENT 1 DOSE MISC PO SCH (12:00)
[2024-12-27 15:35] LABS: PH, VENOUS 7.374 (7.31-7.41)
[2024-12-27] MEDS ORDERED: AZITHROMYCIN 500 MG VIAL ONE (20:28)
[2024-12-27] MEDS ORDERED: MELATONIN 3 MG TAB PO PRN (21:00)
[2024-12-27] MEDS ORDERED: AZITHROMYCIN 500 MG in DEXTROSE 5% 250 ML IV SCH (21:00)
[2024-12-28] VITALS (17 sets, daily range): BP systolic 103–158; BP diastolic 54–101
[2024-12-28 05:29] LABS: BASOPHILS 0.1 % (0-2); HEMATOCRIT 36.8 % (35.0-50.0); HEMOGLOBIN 11.9 g/dL (12.0-18.0); LYMPHOCYTES 3.1 % (24-44); MCH 26.6 (27-36); MCHC 32.4 g/dl (30-36); MCV 82.2 fl (81-99); MONOCYTES 1.2 % (0-12); NEUTROPHILS 95.6 % (39-80); PLATELET COUNT 188 K/uL (140-440); RBC 4.48 M/ul (4.3-5.7); RDW 16.8 (10.5-15.0)
[2024-12-28 05:56] LABS: ALBUMIN/GLOBULIN RATIO 0.79 (1.1-2.4); BILIRUBIN, TOTAL 0.3 mg/dL (0.2-1.0); BUN/CREATININE RATIO 27.14 (6.0-28.6); CALCIUM 9.1 mg/dL (8.5-10.1); CREATININE, SERUM 0.7 mg/dL (0.55-1.02); MAGNESIUM 2.3 mg/dL (1.8-2.4); PHOSPHORUS, INORGANIC 3.4 mg/dL (2.5-4.9); PROTEIN, TOTAL 6.8 g/dL (6.4-8.2)
[2024-12-28] MEDS ORDERED: AZITHROMYCIN 500 MG VIAL ONE (20:21)
[2024-12-29] VITALS (7 sets, daily range): BP systolic 112–144; BP diastolic 60–98
[2024-12-29 05:27] LABS: BASOPHILS 0.1 % (0-2); HEMATOCRIT 38.1 % (35.0-50.0); HEMOGLOBIN 12.2 g/dL (12.0-18.0); LYMPHOCYTES 3.3 % (24-44); MCH 26.5 (27-36); MCHC 32.1 g/dl (30-36); MCV 82.4 fl (81-99); MONOCYTES 1.2 % (0-12); NEUTROPHILS 95.4 % (39-80); PLATELET COUNT 179 K/uL (140-440); RBC 4.62 M/ul (4.3-5.7); RDW 17.2 (10.5-15.0)
[2024-12-29 05:43] LABS: ALBUMIN 3.2 g/dL (3.4-5.0); ALBUMIN/GLOBULIN RATIO 0.84 (1.1-2.4); ANION GAP 8.3 (7-21); BILIRUBIN, TOTAL 0.3 mg/dL (0.2-1.0); BUN/CREATININE RATIO 26.43 (6.0-28.6); CALCIUM 9.3 mg/dL (8.5-10.1); CREATININE, SERUM 0.87 mg/dL (0.55-1.02); POTASSIUM 5.3 mmol/L (3.5-5.1)
[2024-12-29] MEDS ORDERED: HYDROCORTISONE 10 MG TAB PO SCH (09:00)
[2024-12-29] MEDS ORDERED: VENTOLIN HFA18 GM INH (11:12)
[2024-12-29] MEDS ORDERED: BENZONATATE 100 MG CAP PO PRN (15:00)
[2024-12-29] MEDS ORDERED: BENZONATATE100 MG PO (15:01)
[2024-12-29] MEDS ORDERED: MUCINEX600 MG PO (15:01)
== END 2024-12-29 17:25 | disposition home or self-care (01) | DRG 189 ==
LOC: ED 16:58 → CCU 21:35
PROVIDERS: Emergency Medicine; Internal Medicine; ADMIT Family Medicine; ATTEND Family Medicine
PROC: 5A09357 Assistance with Respiratory Ventilation, Less than 24 Consecutive Hours, Continuous Positive Airway Pressure (ICD-10-PCS; principal; 2024-12-26)
DX: J96.01 Acute respiratory failure with hypoxia (principal); J44.1 Chronic obstructive pulmonary disease with (acute) exacerbation; E27.40 Unspecified adrenocortical insufficiency; M84.68XA Pathological fracture in other disease, other site, initial encounter for fracture; C34.90 Malignant neoplasm of unspecified part of unspecified bronchus or lung; F17.210 Nicotine dependence, cigarettes, uncomplicated; Z96.652 Presence of left artificial knee joint; E83.42 Hypomagnesemia; E87.5 Hyperkalemia; Z85.528 Personal history of other malignant neoplasm of kidney; Z90.89 Acquired absence of other organs; Z90.710 Acquired absence of both cervix and uterus; Z88.0 Allergy status to penicillin; Z91.018 Allergy to other foods; Z79.899 Other long term (current) drug therapy; Z99.81 Dependence on supplemental oxygen
CPT/HCPCS: 36415; 36600; 71045; 71260; 80053; 82803; 83735; 83880; 84100; 84484; 85025; 87502; 93005; 93010; 94640; 94660; 94761; 94762; 97161; 97166; 97530; 97535; 99406; A9270; J0456; J1171; J1650; J2060; J2405; J2919; J3475; J7060; Q9967; U0002

== ENCOUNTER 2025-01-08 07:45 | Emergency (ER) | payer MEDICARE, OTHER ==
[~2025-01-08] VITALS: Ht 175.3 cm; Wt 126.4 kg
[~2025-01-08 07:45] MED LIST changes: +BENZONATATE100 MG PO; +MUCINEX600 MG PO; +VENTOLIN HFA18 GM INH
--- OUTSIDE RECORDS SUMMARY | 2025-01-08 07:50 | XMS ---
PreManage Notification: MARTHA MULLIGAN Security Roof Fixer Events No recent Security Events currently on file CRITERIA MET - Group Notification - [facility] - 2 Visits in 30 Days CARE PROVIDERS -, [facility]ist: [employer]ace Current [place] PHONE: [phone] -[place]- Dentist: [place]ace [facility] PHONE: [phone] GRISEL MULLINS Event Marketing Specialisteve Ann PHONE: [phone] CRAIG PARIS Internal Medicine Current PHONE: Unknown KASHIF BEVERLY Nurse Practitioner Current PHONE: [phone] KYAW TOMLINSON Nurse Practitioner: Family Current PHONE: [phone] LENCHO PATRICK Internal Medicine Current PHONE: [phone] SANDI ESTRADA Nurse Practitioner: Family Current PHONE: [phone] TALISHA HOFFMAN I. Physician Prosthodontist Current PHONE: Unknown CARMINE RICHARDSON Nurse Practitioner Current PHONE: Unknown SALO DENTON Nurse Practitioner Carlos TAPIA PHONE: [phone] CRISTIANO Mease [facility] Nursing [facility] Current PHONE: Unknown CULLEN REEVES [facility] Current PHONE: Unknown PALLAVI SALDIVAR Physician Prosthodontist Current PHONE: Unknown Rehana has no Care Guidelines for this patient. Loreta VISIT COUNT (12 MO.) 2 AMY Yo TOTAL 2 NOTE: Visits indicate total known visits. ED/UCC VISIT TRACKING (12 MO.) 01/08/2025 07:45 AMY Tee [place] TYPE: Emergency COMPLAINT: - SHORTNESS OF BREATH 12/26/2024 16:59 AMY Tee [place] TYPE: Emergency COMPLAINT: - CHEST PAIN INPATIENT VISIT TRACKING (12 MO.) 12/26/2024 21:35 AMY Tee [place] TYPE: Critical Care COMPLAINT: - CHEST PAIN DIAGNOSES: - Acquired absence of both cervix and uterus - Acquired absence of both cervix and uterus - Acquired absence of other organs - Acquired absence of other organs - Acute respiratory failure with hypoxia - Acute respiratory failure with hypoxia - Allergy status to penicillin - Allergy status to penicillin - Allergy to other foods - Allergy to other foods - Chronic obstructive pulmonary disease with (acute) exacerbation - Chronic obstructive pulmonary disease with (acute) exacerbation - Dependence on supplemental oxygen - Dependence on supplemental oxygen - Dyspnea, unspecified - Hyperkalemia - Hyperkalemia - Hypomagnesemia - Hypomagnesemia - Malignant neoplasm of unspecified part of unspecified bronchus or lung - Malignant neoplasm of unspecified part of unspecified bronchus or lung - Nicotine dependence, cigarettes, uncomplicated - Nicotine dependence, cigarettes, uncomplicated - Other senior care (current) drug therapy - Other manager intermediate (current) drug therapy - Pathological fracture in other disease, other site, initial encounter for fracture - Pathological fracture in other disease, other site, initial encounter for fracture - Personal history of other malignant neoplasm of kidney - Personal history of other malignant neoplasm of kidney - Presence of left artificial knee joint - Presence of left artificial knee joint - Unspecified adrenocortical insufficiency - Unspecified adrenocortical insufficiency [id number]
[2025-01-08] MEDS ORDERED: methylPREDNISolone SOD SUCC 125 MG/2 ML VIAL IV ONE (08:00)
[2025-01-08 08:14] LABS: BASOPHILS 0.8 % (0-2); EOSINOPHILS 1.8 % (0-6); HEMATOCRIT 41.4 % (35.0-50.0); HEMOGLOBIN 13.5 g/dL (12.0-18.0); LYMPHOCYTES 22.8 % (24-44); MCH 26.9 (27-36); MCHC 32.6 g/dl (30-36); MCV 82.7 fl (81-99); MONOCYTES 6.1 % (0-12); NEUTROPHILS 68.5 % (39-80); PLATELET COUNT 183 K/uL (140-440); RBC 5.01 M/ul (4.3-5.7); RDW 16.8 (10.5-15.0)
[2025-01-08] MEDS ORDERED: HYDROmorphone HCL 1 MG/ML SYR IV PRN (08:30)
[2025-01-08 08:34] LABS: ALBUMIN 3.3 g/dL (3.4-5.0); ALBUMIN/GLOBULIN RATIO 0.94 (1.1-2.4); ANION GAP 6.5 (7-21); BILIRUBIN, TOTAL 0.8 mg/dL (0.2-1.0); BUN/CREATININE RATIO 18.18 (6.0-28.6); CALCIUM 8.7 mg/dL (8.5-10.1); CREATININE, SERUM 0.66 mg/dL (0.55-1.02); POTASSIUM 3.5 mmol/L (3.5-5.1); PROTEIN, TOTAL 6.8 g/dL (6.4-8.2)
[2025-01-08] MEDS ORDERED: HYDROCODON-ACE1 EA10 PO (08:56)
[2025-01-08] MEDS ORDERED: DOXYCYCLINE HY100 MG PO (08:56)
[2025-01-08] MEDS ORDERED: PREDNISONE20 MG PO (08:56)
[2025-01-08] MEDS ORDERED: DOXYCYCLINE HYCLATE 100 MG CAP PO ONE (09:00)
[2025-01-08] MEDS ORDERED: ALBUTEROL SULFATE 0.083% 3 ML VIAL INH ONE (09:00)
[2025-01-08 10:09] VITALS: BP 126/78
== END 2025-01-08 10:11 | disposition home or self-care (01) ==
LOC: ED 07:45
PROVIDERS: Emergency Medicine
DX: J44.1 Chronic obstructive pulmonary disease with (acute) exacerbation (principal); E27.40 Unspecified adrenocortical insufficiency; M48.54XA Collapsed vertebra, not elsewhere classified, thoracic region, initial encounter for fracture; Z79.899 Other long term (current) drug therapy; Z88.0 Allergy status to penicillin; Z91.018 Allergy to other foods; F17.200 Nicotine dependence, unspecified, uncomplicated
CPT/HCPCS: 36415; 71045; 80053; 83880; 85025; 96374; 96375; 99285-25; J1171; J2919

== ENCOUNTER 2025-03-11 19:20 | Inpatient (IN) | payer MEDICARE, OTHER ==
[~2025-03-11] VITALS: Ht 175.3 cm; Wt 111.3 kg
[~2025-03-11 19:20] MED LIST changes: +DOXYCYCLINE HY100 MG PO; +HYDROCODON-ACE1 EA10 PO
--- OUTSIDE RECORDS SUMMARY | 2025-03-11 19:27 | XMS ---
PreManage Notification: MARTHA MULLIGAN Security Inventory Taker Events No recent Security Events currently on file CRITERIA MET - Group Notification CARE PROVIDERS -, [facility]ist: Farm Contractor Buyer [facility] [place] PHONE: [phone] -[place]- Dentist: Farm Contractor Buyer [facility] Dental [facility] PHONE: [phone] GRISEL MULLINS Layout Designereve Ann PHONE: [phone] CRAIG PARIS Internal Medicine Current PHONE: Unknown KASHIF BEVERLY Nurse Practitioner Current PHONE: [phone] KYAW TOMLINSON Nurse Practitioner: Family Current PHONE: [phone] LENCHO PATRICK Internal Medicine Current PHONE: [phone] SANDI ESTRADA Nurse Practitioner: Family Current PHONE: [phone] TALISHA HOFFMAN I. Physician Ceramic Tile Installation Helper Current PHONE: Unknown CARMINE RICHARDSON Nurse Practitioner Current PHONE: Unknown SALO DENTON Nurse Practitioner Current PHONE: [phone] CRISTIANO GLADSTONE [facility] Current PHONE: Unknown LALA [facility] Current PHONE: Unknown PALLAVI SALDIVAR Physician Ceramic Tile Installation Helper Current PHONE: Unknown Rehana has no Care Guidelines for this patient. Loreta VISIT COUNT (12 MO.) 3 AMY Yo TOTAL 3 NOTE: Visits indicate total known visits. ED/UCC VISIT TRACKING (12 MO.) 03/11/2025 19:21 AMY Tee [place] TYPE: Emergency COMPLAINT: - WEAKNESS 01/08/2025 07:45 AMY Tee [place] TYPE: Emergency COMPLAINT: - SHORTNESS OF BREATH DIAGNOSES: - Allergy status to penicillin - Allergy to other foods - Chronic obstructive pulmonary disease with (acute) exacerbation - Collapsed vertebra, not elsewhere classified, thoracic region, initial encounter for fracture - Nicotine dependence, unspecified, uncomplicated - Other superintendent terminal (current) drug therapy - Shortness of breath - Unspecified adrenocortical insufficiency 12/26/2024 16:59 AMY T[place] TYPE: Emergency [...] bronchus or lung - Malignant neoplasm of upper lobe, left bronchus or lung - Nicotine dependence, cigarettes, uncomplicated - Nicotine dependence, cigarettes, uncomplicated - Other senior living (current) drug therapy - Other superintendent terminal (current) drug therapy - Pathological fracture in [...] Unspecified adrenocortical insufficiency - Unspecified adrenocortical insufficiency [id number]
[2025-03-11] MEDS ORDERED: ondansetron HCL 4 MG/2 ML VIAL IV ONE (20:00)
[2025-03-11] MEDS ORDERED: DEXTROSE 50% 50 ML SYR IV ONE (20:00)
[2025-03-11] MEDS ORDERED: LACTATED RINGER'S 1,000 ML IV ONE (20:00)
[2025-03-11] MEDS ORDERED: METOPROLOL TARTRATE 5 MG/5 ML VIAL IV ONE (20:45)
[2025-03-11] MEDS ORDERED: METOPROLOL TARTRATE 5 MG/5 ML VIAL ONE (20:45)
[2025-03-11 21:04] LABS: BASOPHILS 0.3 % (0.1-1.2); EOSINOPHILS 0.8 % (0.7-5.8); HEMATOCRIT 42.7 % (34.1-44.9); HEMOGLOBIN 13.3 g/dL (11.2-15.7); LYMPHOCYTES 22.4 % (19.3-51.7); MCH 27.1 PG (25.6-32.2); MCHC 31.1 g/dL (32.2-35.5); NEUTROPHILS 69.2 % (34.0-71.1); PLATELET COUNT 191 K/uL (182-369); RBC 4.91 M/uL (3.93-5.22)
[2025-03-11 21:07] LABS: ALBUMIN 2.8 g/dL (3.4-5.0); ALBUMIN/GLOBULIN RATIO 0.74 (1.1-2.4); ANION GAP 15.6 (7-21); BILIRUBIN, TOTAL 0.7 mg/dL (0.2-1.0); BUN/CREATININE RATIO 22.22 (6.0-28.6); CALCIUM 8.4 mg/dL (8.5-10.1); CREATININE, SERUM 0.63 mg/dL (0.55-1.02); POTASSIUM 3.6 mmol/L (3.5-5.1); PROTEIN, TOTAL 6.6 g/dL (6.4-8.2)
[2025-03-11] MEDS ORDERED: MAGNESIUM SULFATE 20 GM/500 ML BAG IV ONE (21:30)
[2025-03-11] MEDS ORDERED: MORPHINE SULFATE 4 MG/ML VIAL IV ONE (22:00)
[2025-03-11] MEDS ORDERED: dilTIAZem HCL 25 MG/5 ML VIAL IV ONE (23:45)
[2025-03-12] VITALS (19 sets, daily range): BP systolic 96–127; BP diastolic 43–114
[2025-03-12] MEDS ORDERED: SODIUM CHLORIDE 0.9% 500 ML IV PRN (01:15)
[2025-03-12] MEDS ORDERED: CALCIUM GLUCONATE 1,000 MG/10 ML VIAL IV ONE (01:15)
[2025-03-12] MEDS ORDERED: APIXABAN 5 MG TAB PO ONE (01:30)
[2025-03-12] MEDS ORDERED: HYDROCORTISONE SOD SUCCINATE 100 MG/2 ML VIAL IV ONE (03:00)
[2025-03-12] MEDS ORDERED: ACETAMINOPHEN 325 MG TAB PO PRN ×2 (03:00→10:45)
[2025-03-12] MEDS ORDERED: DEXTROSE 5% - LACTATED RINGERS 1,000 ML IV SCH ×2 (03:00→10:45)
[2025-03-12] MEDS ORDERED: HYDROmorphone HCL 1 MG/ML SYR IV PRN (03:00)
[2025-03-12] MEDS ORDERED: ondansetron HCL 4 MG/2 ML VIAL IV PRN ×2 (03:00→10:45)
[2025-03-12] MEDS ORDERED: DILTIAZEM HCl/D5W 125 ML IV SCH (03:00)
[2025-03-12] MEDS ORDERED: PROCHLORPERAZINE EDISYLATE 10 MG/2 ML VIAL IV PRN ×2 (03:00→10:45)
[2025-03-12] MEDS ORDERED: MORPHINE SULFATE 4 MG/ML VIAL IV PRN ×2 (03:00→10:45)
[2025-03-12 04:41] LABS: BILIRUBIN, URINE POSITIVE (negative); BLOOD/HGB, URINE NEGATIVE (Negative); KETONE, URINE SMALL (Negative); LEUK ESTERASE, URINE NEGATIVE (negative); NITRITE, URINE NEGATIVE (negative); PH, URINE 5.5 (5-7)
[2025-03-12 04:52] LABS: BACTERIA, URINE 1+ /hpf (negative); CRYSTALS, URINE NONE SEEN (0-1+); EPITHELIAL CELLS, URINE SQUAMOUS 1+ /lpf (0-1+)
[2025-03-12 04:53] LABS: CASTS, URINE HYALINE 2+ \\lpf; COLLECTION TYPE, URINE CLEAN CATCH; REFLEX CULTURE, URINE No (No)
--- NOTE | 2025-03-12 05:28 | NUR ---
COMMENCE BLOCK CHARTING: PATIENT ARRIVED TO UNIT FROM ED VIA GURNEY AT 03:30; TRANSPORTED BY THIS RN AFTER REPORT RECEIVED FROM SHARMILA ESPARZA. ORDER RECEIVED FROM DR. MEJIAS FOR SCHULTE CATHETER. PATIENT APPEARS UNKEMPT AND SMELLS OF CIGARETTES. HAIR IS TANGLED AND MATTED. PATIENT REPORTS SHE HAS BEEN UNABLE TO GET OUT OF BED FOR 2 DAYS. BED BATH GIVEN PATIENT NOTED TO HAVE OLD STOOL AND URINE ON HER ABDOMEN, BUTTOCK, GROIN AND LEGS. BILAT FEET WERE BLACK WITH DIRT AND WHAT APPEARED TO BE STOOL. HANDS WERE CAKED IN DIRT AND OLD STOOL. FACE ALSO DIRTY AND IT APPEARED TO HAVE STOOL ON HER EYEBROWS FROM RUBBING WITH SOILED HANDS. SCHULTE CATHETER PLACED WITH RETURN OF 900 ML URINE. UA SENT. PANNUS NOTED TO BE REDDENED AND AN AREA WITH EXORIATION. RIGHT INNER THIGH HAS AN OPEN EXCORIATION. BUTTOCKS NOTED TO HAVE ERYTHEMA BUT BLANCHEABLE.RIGHT BUTTOCK HAS PEELING NOTED BUT NO AT SITE OF PEELING. FOLDS APPEAR TO HAVE YEAST AND SMELL SUCH. PATIENT'S GRANDDAUGHTER JERSON AT BEDSIDE. JERSON REPORTS SHE IS 15 AND HELPS CARE FOR HER GRANDMOTHER. PATIENT REPORTS HER FRIEND DERECK IS HER POA. JERSON PROVIDED DERECK'S NUMBER [phone]. THIS RN CALLED TO INFORM DERECK OF ADMISSION AT 04:16; SHE WAS UNAWARE. DERECK REPORTS THAT DR. MACDONALD RECOMMENDED HOSPICE TO PATIENT "WEEKS AGO". DERECK SAYS PATIENT HAS NOT BEEN EATING. AT ONE POINT SHE WANTED TO BE ON HOSPICE BUT DIDN'T WANT TO GO TO [facility] OUT OF CONCERN FOR CARING FOR HER GRANDDAUGHTERS. DERECK REPORTS PATIENT IS "RELUCTANT TO LEAVE THE GIRLS". DERECK INFORMED INDUSTRIAL ENGINEERING DIRECTOR THAT HOSPICE HAS ALREADY COMPLETED AN ASSESSMENT ON PATIENT. DERECK TOLD THIS INDUSTRIAL ENGINEERING DIRECTOR THAT PATIENT DOES NOT HAVE AND ADVANCED DIRECTIVE. DERECK REPORTS SHE WILL BE IN LATER THIS MORNING AND "TALK TO MARTHA ABOUT A POLST". PATIENT HAD A BOTTLE OF HYDROCORT AND A BOTTLE OF HYDROCODONE/APAP 5/325MG. 2 RN VERIFICATION OF 20 TABLETS OF HYDROCODONE/APAP COMPLETED WITH SHARMILA CARRASQUILLO. BOTH MEDICATIONS LOCKED IN ROOM LOCKBOX.
[2025-03-12] MEDS ORDERED: ALBUTEROL SULFATE 0.083% 3 ML VIAL INH PRN (05:45)
--- NOTE | 2025-03-12 06:49 | NUR ---
ORDERS RECEIVED FROM DR. PLASENCIA FOR AM CBC, CMP, MAG AND PHOS. LABS DRAWN OF CENTRAL LINE WITHOUT DIFFICULTY. PATIENT ROUSED BRIEFLY TO ACTIVITY BUT WENT BACK TO SLEEP. CALL LIGHT IN REACH.
[2025-03-12 06:56] LABS: BASOPHILS 0.2 % (0.1-1.2); EOSINOPHILS 0.2 % (0.7-5.8); HEMATOCRIT 39.8 % (34.1-44.9); HEMOGLOBIN 12.3 g/dL (11.2-15.7); MCH 27.1 PG (25.6-32.2); MCHC 30.9 g/dL (32.2-35.5); MCV 87.7 fL (79.4-94.8); MONOCYTES 6.5 % (4.7-12.5); NEUTROPHILS 85.6 % (34.0-71.1); PLATELET COUNT 167 K/uL (182-369); RBC 4.54 M/uL (3.93-5.22)
[2025-03-12] MEDS ORDERED: IBLOOD GLUCOSE TEST STRIP 1 EA TEST VI SCH (07:00)
[2025-03-12 07:06] LABS: ALBUMIN 2.4 g/dL (3.4-5.0); ALBUMIN/GLOBULIN RATIO 0.8 (1.1-2.4); BILIRUBIN, TOTAL 0.6 mg/dL (0.2-1.0); BUN/CREATININE RATIO 15.87 (6.0-28.6); CALCIUM 8.3 mg/dL (8.5-10.1); CREATININE, SERUM 0.63 mg/dL (0.55-1.02); MAGNESIUM 1.7 mg/dL (1.8-2.4); PHOSPHORUS, INORGANIC 3.1 mg/dL (2.5-4.9); PROTEIN, TOTAL 5.4 g/dL (6.4-8.2)
[2025-03-12] MEDS ORDERED: MAGNESIUM SULFATE 2 GM/50 ML BAG IV SCH (07:45)
[2025-03-12] MEDS ORDERED: POTASSIUM CHLORIDE 40 MEQ,LIDOCAINE HCL 1% 40 MG in DEXTROSE 5% 250 ML IV ONE (07:45)
--- NOTE | 2025-03-12 08:29 | EKG ---
[facility] [address] [place] [address] Signed Unusual P axis, possible ectopic atrial rhythm with premature atrial complexes with aberrant conduction Low voltage QRS Incomplete right bundle branch block Nonspecific T wave abnormality Abnormal ECG When compared with ECG of 26-DEC-2024 17:02, Ectopic atrial rhythm has replaced Sinus rhythm Nonspecific T wave abnormality now evident in Inferior leads Confirmed by Daylin Plasencia MD () on 03/12/2025 8:29:04 AM Electronically Signed By: DAYLIN PLASENCIA MD 03/12/25 0829 PATIENT NAME: MARTHA MULLIGAN Electrocardiogram DATE OF : 53 PHYSICIAN: DAYLIN PLASENCIA MD REPORT #: [id number] REPORT IS CONFIDENTIAL AND NOT TO BE RELEASED WITHOUT AUTHORIZATION
--- NOTE | 2025-03-12 08:30 | EKG ---
[facility] [address] [place] [address] Signed Atrial fibrillation with rapid ventricular response Low voltage QRS RSR' or QR pattern in V1 suggests right ventricular conduction delay Septal infarct , age undetermined Abnormal ECG When compared with ECG of 11-MAR-2025 19:28, Atrial fibrillation has replaced Ectopic atrial rhythm Vent. rate has increased BY [address] now depressed in Anterior leads Confirmed by Daylin Plasencia MD () on 03/12/2025 8:29:49 AM Electronically Signed By: DAYLIN PLASENCIA MD 03/12/25 0830 PATIENT NAME: MARTHA MULLIGAN Electrocardiogram DATE OF : 53 PHYSICIAN: DAYLIN PLASENCIA MD REPORT #: [id number] REPORT IS CONFIDENTIAL AND NOT TO BE RELEASED WITHOUT AUTHORIZATION
--- NOTE | 2025-03-12 08:30 | EKG ---
[facility] [address] [place] [address] Signed Sinus rhythm with premature supraventricular complexes Low voltage QRS Incomplete right bundle branch block Septal infarct (cited on or before 11-MAR-2025) Abnormal ECG When compared with ECG of 11-MAR-2025 20:32, Sinus rhythm has replaced Atrial fibrillation Vent. rate has decreased BY 80 BPM Confirmed by Daylin Plasencia MD () on 03/12/2025 8:30:39 AM Electronically Signed By: DAYLIN PLASENCIA MD 03/12/25 0830 PATIENT NAME: MARTHA MULLIGAN Electrocardiogram DATE OF : 53 PHYSICIAN: DAYLIN PLASENCIA MD REPORT #: [id number] REPORT IS CONFIDENTIAL AND NOT TO BE RELEASED WITHOUT AUTHORIZATION
[2025-03-12] MEDS ORDERED: HYDROCODON-ACE1 EA10 PO (08:39)
[2025-03-12] MEDS ORDERED: ENOXAPARIN SODIUM 120 MG/0.8 ML SYR SUB-Q SCH ×2 (09:00)
[2025-03-12] MEDS ORDERED: HYDROCORTISONE SOD SUCCINATE 100 MG/2 ML VIAL IV SCH (09:00)
--- NOTE | 2025-03-12 09:15 | NUR ---
ATTEMPTED SWALLOW EVAL WITH PATIENT PRIOR TO BREAKFAST. PT REFUSING, STATES "I DONT NEED ICE CHIPS, GIVE ME THE WATER". PT EXPLAINED RISKS OF ASPRIATION AND POTENTIAL NEED TO COMPLETE SWALLOW EVAL PRIOR TO EATING OR DRINKING, PT UNAGREEABLE. PT ABLE TO SWALLOW SMALL AMOUNTS OF WATER THROUGH A STRAW. PT REFUSING BREAKFAST AT THIS TIME.
[2025-03-12] MEDS ORDERED: PHARMACY RENAL DOSE ADJUSTMENT 1 DOSE MISC PO SCH (12:00)
--- NOTE | 2025-03-12 12:00 | NUR ---
PER PHYSICAL THERAPY, PT WAS ABLE TO SIT ON SIDE OF BED WITH HEAVY ASSISTANCE, NOT ABLE TO STAND OR AMBULATE AT THIS TIME. CONCERN ABOUT COMPRESSION FRACTURE AND SPINAL PRECAUTIONS. UNTIL INFORMED OTHERWISE, PATIENT IS SAFE TO SIT ON SIDE OF BED BUT NOT TO STAND AND AMBULATE AT THIS TIME.
--- NOTE | 2025-03-12 17:50 | NUR ---
PT ONLY ATE 15% OF DINNER. STATES THE CHICKEN TASTED BAD AND GREEN BEANS WERE TOO HARD. OFFERED PATIENT BROTH, JELLO, PUDDING, APPLESAUCE, ECT. PT DECLINES.
--- NOTE | 2025-03-12 18:25 | NUR ---
ENSURED PT IS IN POSITION OF COMFORT, PT LAYING ON LEFT SIDE, BED IN LOWEST POSITION AND LOCKED, SCHULTE EMPTIED AND IV PUMP CLEARED, PT DENIES FURTHER NEEDS.
--- NOTE | 2025-03-12 19:42 | NUR ---
REPORT RECEIVED FROM SHARMILA MORA. PAITENT RESTING IN BED WITH EYES CLOSED. RESPIRATIONS EVEN AND UNLABORED. CALL LIGHT IN REACH.
--- NOTE | 2025-03-12 20:55 | NUR ---
PATIENT TURNED FOR 2RN SKIN CHECK. SKIN APPEARS TO BE IMPROVING SINCE THIS RN'S ASSESMENT LAST NIGHT. PATIENT WAS INCONTINENT FOR A SMALL AMOUNT OF SOFT STOOL. CLEASED; PERICARE COMPLETED. REPOSITIONED WITH PILLOW SUPPORT. CALL LIGHT IN REACH.
--- NOTE | 2025-03-12 20:59 | NUR ---
PATIENT IN BED AT THIS TIME. CONCRETE CARPENTER CHARTED HOURLY ROUNDS, CONCRETE CARPENTER ALSO PROVIDED PATIENT WITH CATHETER CARE. CALL LIGHT WITHIN REACH, NO FURTHER NEEDS AT THIS TIME.
--- NOTE | 2025-03-12 22:08 | NUR ---
REPORT GIVEN TO SHARMILA GREENE. PATIENT DOWNGRADED TO MED/SURG ROOM 111. NOTIFIED RAMONA OF CONTROLLED MEDS IN LOCKBOX MOVED TO NEW ROOM.
--- NOTE | 2025-03-12 22:50 | NUR ---
RECEIVED REPORT FROM SHARMILA SHI. PT MOVED TO ROOM 111 VIA HOSPITAL BED. PT A&O X 4. REPORTS MID CHEST PAIN (ONGOING) 04/28. NEXT PAIN MED DUE AT 2315-PT INFORMED. VSS. LS COARSE W/ WHEEZES THROUGHOUT. REPORTS OLIVER AND SOB. UNABLE TO TOLERATE HOB LOWERED. PT HAS 2L O2 NC IN PLACE. HRR, TELEMETRY IN PLACE. BTA. LBM TODAY. SCHULTE CATH IN PLACE, CLEAR YELLOW URINE NOTED. AISHA CLIFTON PERFORMED CATH CARE. RIGHTNECK TRIPLE LUMEN IJ, DRSG EDGES ROLLED, REINFORCED W/ TAPE. ALL LUMENS GOOD BLOOD RETURN AND FLUSHED EASILY. IVF INFUSING PER EMAR. SKIN CHECKED UPON ADMISSION-COCCYX W/ BLANCHEABLE REDNESS. PANNUS AND BREASTS MOIST AND REDDENED-ALL FOLDS CLEANSED W/ SOAP AND WATER. BRUISING TO LEFT CHEST. RIGHT INNER THIGH EXCORIATION. PT REPOSITIONED TO LEFT SIDE LYING W/ 2 ASSIST-PT ABLE TO HELP SOME. CALL LIGHT WITHIN REACH. PT CURRENTLY ON PHONE UPDATING FRIENDS AND FAMILY OF ROOM CHANGE.
[2025-03-13] VITALS (13 sets, daily range): BP systolic 107–132; BP diastolic 58–68
--- NOTE | 2025-03-13 00:19 | NUR ---
PT MEDICATED W/ 4MG IV MORPHINE PER EMAR FOR C/O 6/10 MID CHEST PAIN. PT REPOSITIONED IN BED FOR COMFORT.
--- NOTE | 2025-03-13 00:27 | NUR ---
RESTING WITH EYES CLOSED, SPO2 94%. CALL LIGHT INREACH
--- NOTE | 2025-03-13 01:16 | NUR ---
PT TRANSFERRED FROM CCU AT 2200. ADMITTED FOR A-FIB W/ RVR, ELECTROLYE ABNORMALITIES. PT UNABLE TO GET OUT OF CHAIR AT HOME X 2D. COVERED IN URINE AND FECES. PT IS GUARDIAN OF 2 MINORS. HOSPICE CONSULTED. MID CHEST PAIN-PRN MORPHINE. 2L O2 @ HS BASELINE. LS COARSE AND WHEEZY. TELEMETRY-SR NOW. SCHULTE. RIGHT NECK TRIPLE LUMEN IJ W/ IVF. SKIN ISSUES DOCUMENTED. GOT TO EOB W/ PT AND MAX ASSIST-LIMITED BY PAIN & SEVERE COMPRESSION FX AT T3.
--- NOTE | 2025-03-13 03:07 | NUR ---
SLEEPING SOUNDLY. APPEARS COMFORTABLE.
--- NOTE | 2025-03-13 03:42 | NUR ---
PT REPORTS MID-CHEST AND BACK PAIN. PT REPOSITIONED TO SUPINE AND PRN IV MORPHINE ADMINISTERED.
--- NOTE | 2025-03-13 04:48 | NUR ---
PT AWAKE, ASSISTED TO REPOSITION. DENIES FURTHER NEEDS.
--- NOTE | 2025-03-13 05:30 | NUR ---
PT AWAKE, SLEEPING BETWEEN CARE. SUPERINTENDENT INSTITUTION LISANDRO IN TO OBTAIN VS AND FRESHEN ICE WATER.
[2025-03-13 06:43] LABS: BASOPHILS 0 % (0.1-1.2); EOSINOPHILS 0.2 % (0.7-5.8); HEMATOCRIT 36.7 % (34.1-44.9); HEMOGLOBIN 11.3 g/dL (11.2-15.7); LYMPHOCYTES 10.2 % (19.3-51.7); MCH 27.4 PG (25.6-32.2); MCHC 30.8 g/dL (32.2-35.5); MCV 88.9 fL (79.4-94.8); MONOCYTES 6.1 % (4.7-12.5); NEUTROPHILS 83.3 % (34.0-71.1); PLATELET COUNT 156 K/uL (182-369); RBC 4.13 M/uL (3.93-5.22)
--- NOTE | 2025-03-13 06:47 | NUR ---
LABS DRAWN VIA RIGHT NECK IJ. PT ALSO GIVEN 4MG IV MORPHINE.
[2025-03-13 07:00] LABS: ALBUMIN 2.1 g/dL (3.4-5.0); ALBUMIN/GLOBULIN RATIO 0.66 (1.1-2.4); ANION GAP 5.6 (7-21); BILIRUBIN, TOTAL 0.3 mg/dL (0.2-1.0); BUN/CREATININE RATIO 18.96 (6.0-28.6); CALCIUM 8.4 mg/dL (8.5-10.1); CREATININE, SERUM 0.58 mg/dL (0.55-1.02); MAGNESIUM 1.8 mg/dL (1.8-2.4); POTASSIUM 3.6 mmol/L (3.5-5.1); PROTEIN, TOTAL 5.3 g/dL (6.4-8.2)
--- NOTE | 2025-03-13 07:30 | NUR ---
PT RESTING EYES CLOSED AT TIME OF SHIFT REPORT, LEFT UNDISTURBED. AWAKE NOW STAFF ASSIST TO REPOSITION PER HER REQUEST. FRESH H20 TO BEDSIDE CALL LIGHT IN REACH.
[2025-03-13] MEDS ORDERED: POTASSIUM CHLORIDE 10 MEQ TABCR PO ONE ×2 (08:00→22:00)
[2025-03-13] MEDS ORDERED: MAGNESIUM CHLORIDE 64 MG TABCR PO ONE (08:00)
[2025-03-13] MEDS ORDERED: HYDROCORTISONE 10 MG TAB PO SCH (09:00)
--- NOTE | 2025-03-13 09:27 | NUR ---
PT EATS VERY LITTLE FOR BREAKFAST. JELLO AND BANANA PROVIDED PER REQUEST. PT SITTING UPRIGHT IN BED VISITOR IS PRESENT
--- NOTE | 2025-03-13 10:37 | NUR ---
PT CONTINUES IN BED STRUGGLES TO GET COMFORTABLE. MORPHINE ADMINISTERED PER REQUEST
--- NOTE | 2025-03-13 10:41 | NUR ---
DR PLASENCIA IN TO SEE PT HER SONE IS PRESENT
[2025-03-13] MEDS ORDERED: HYDROmorphone HCL 1 MG/ML SYR IV PRN (11:00)
--- NOTE | 2025-03-13 12:18 | NUR ---
PT HOYERED TO CHAIR AFTER WANDA CARE COMPLETE. LUNCH SERVED, PT AGREES SHE IS COMFORTABLE AND DILAUDID WORKS MUCH BETTER. CALL LIGHT IN LAP
--- NOTE | 2025-03-13 13:11 | NUR ---
PT TOLERATES TIME IN THE CHAIR MOVES BACK TO BED NOW VIA SHAKEEL. ECHO CALLS TO SAY THEY ARE COMING TO DO HER TEST
--- NOTE | 2025-03-13 13:17 | NUR ---
IN TO ASSIST SHARMILA BECKFORD PATIENT BACK TO BED. PATIENT NOW IN BED RESTING. VITALS AND I&O'S DONE ADN CHARTED. CALL LIGHT IN REACH. NO FURTHER NEEDS AT THIS TIME.
--- NOTE | 2025-03-13 14:22 | NUR ---
echo complete pt resting on her side visitors present x3 pain med given per luis a
--- NOTE | 2025-03-13 16:32 | NUR ---
PT ASSISTED TO REPOSITION FOR COMFORT. CALL LIGHT IS IN REACH
--- NOTE | 2025-03-13 17:58 | NUR ---
PATIENT IN BED RESTING WITH EYES CLOSED AT THIS TIME. VITALS AND I&O'S DONE AND CHARTED. RN NOTIFIED OF URINE OUTPUT. CALL LIGHT IN REACH. NO FURTHER NEEDS AT THIS TIME.
--- NOTE | 2025-03-13 18:41 | NUR ---
PT RESTING IN BED SKIN CARE COMPLETED, PAIN MEDS ADMINISTERED, PT AGREES SHE IS COMFORTABLE. VISITOR PRESENT X1
--- NOTE | 2025-03-13 19:00 | NUR ---
REPORT RECEIVED FROM SHARMILA MCGEE. PATIENT SITTING UP IN BED AND IS WITHOUT ANY NEEDS AT THIS TIME. CALL LIGHT AND PERSONAL BELONGINGS ARE WITHIN REACH.
--- NOTE | 2025-03-13 20:55 | NUR ---
PATIENT MEDICATED PER EMAR. IJ FLUSHED WITH 10ML OF NS, DRESSING INTACT. PATIENT WITHOUT FURTHER NEEDS AT THIS TIME. CALL LIGHT AND PERSONAL BELONGINGS ARE WITHIN REACH.
[2025-03-13] MEDS ORDERED: MICONAZOLE NITRATE 1 EA BTL TOP SCH (21:00)
--- NOTE | 2025-03-13 21:24 | NUR ---
2116- ICU CALLED PT HAD 6 RUN OF V TACH. PT IN ROOM, 2LNC IN PLACE, TELEIN PLCE, PT DENIES CP OR RACING HEART S/SX. COOPERATIVE WITH VITALS AND REPOSITIONING. PRIMARY RN IN ROOM
--- NOTE | 2025-03-13 21:37 | EKG ---
[facility] [address] [facility] [place] [address] Signed Sinus rhythm with premature supraventricular complexes Low voltage QRS Incomplete right bundle branch block Cannot rule out Anterior infarct (cited on or before 11-MAR-2025) Abnormal ECG When compared with ECG of 12-MAR-2025 01:45, Questionable change in initial forces of Anterior leads Confirmed by Daylin Plasencia MD () on 03/13/2025 9:37:19 PM Electronically Signed By: DAYLIN PLASENCIA MD 03/13/25 2137 PATIENT NAME: MARTHA MULLIGAN Electrocardiogram DATE OF : 53 PHYSICIAN: DAYLIN PLASENCIA MD REPORT #: [id number] REPORT IS CONFIDENTIAL AND NOT TO BE RELEASED WITHOUT AUTHORIZATION
--- NOTE | 2025-03-13 21:57 | NUR ---
PATIENT HAD EPISODE OF V-TACH FOR [address] PLASENCIA NOTIFIED. WITH ORDERS FOR MAGNESIUM, CALCIUM GLUCONATE, AND POTASSIUM. MD STATES HE WILL ENTER ORDER. NO FURTHER ORDERS FOR THIS PATIENT AT THIS TIME. CALL ENDED.
[2025-03-13] MEDS ORDERED: MAGNESIUM SULFATE 2 GM/50 ML BAG IV ONE (22:00)
[2025-03-13] MEDS ORDERED: Calcium Gluconate in NS 1,000 MG/50 ML BAG IV ONE (22:15)
--- NOTE | 2025-03-13 22:40 | NUR ---
PATIENT MEDICATED PER EMAR. PATIENT WITHOUT FURTHER NEEDS AT THIS TIME. CALL LIGHT AND PERSONAL BELONGINGS ARE WITHIN REACH.
--- NOTE | 2025-03-13 23:20 | NUR ---
PATIENT TELE LEADS RE-ATTACHED. PATIENT HOB LOWERED TO COMFORT. PATIENT WITHOUT FURTHER NEEDS AT THIS TIME. CALL LIGHT AND PERSONAL BELONGINGS ARE WITHIN REACH.
[2025-03-14] VITALS (36 sets, daily range): BP systolic 75–132; BP diastolic 55–95
--- NOTE | 2025-03-14 01:00 | NUR ---
PATIENT CALLED REPORTING SHE HAD DIARRHEA. THIS RN AND MARITZA GRAFA IN TO CLEAN PATIENT AND PROVIDE FRESH LINEN. WHEN BRIEF WAS PULLED BACK, IT WAS NOTED TO HAVE A MEDIUM AMOUNT OF DARK RED BLOOD. PATIENT ROLLED AND LARGE BLOOD CLOT AND LARGE AMOUNT OF DARK RED BLOOD WAS NOTED ON PATIENT BRIEF. PATIENT WAS BEING WIPED, DARK RED BLOOD KEPT FLOWING OUT OF PATIENT'S RECTUM. KORINA, RN IN ROOM TO ASSESS AND TOOK OVER TO ASSIST HOSPICE REGISTERED NURSE IN CLEANING UP PATIENT WHILE THIS RN WENT OUT OF ROOM TO NOTIFY DR PLASENCIA. DR PLASENCIA NOTIFIED OF RECENT EVENT. MD STATES TO DISCONTINUE LOVENOX BID, ORDER CBC AND TYPE AND SCREEN, THEN CALL MD BACK WITH HGB LEVEL. MD WITH NO FURTHER ORDERS AT THIS TIME. CALL ENDED.
[2025-03-14 01:47] LABS: BASOPHILS 0.2 % (0.1-1.2); EOSINOPHILS 0.4 % (0.7-5.8); HEMATOCRIT 30.7 % (34.1-44.9); LYMPHOCYTES 10.1 % (19.3-51.7); MCHC 29.3 g/dL (32.2-35.5); MCV 92.2 fL (79.4-94.8); MONOCYTES 8.7 % (4.7-12.5); NEUTROPHILS 80.1 % (34.0-71.1); PLATELET COUNT 138 K/uL (182-369); RBC 3.33 M/uL (3.93-5.22)
--- NOTE | 2025-03-14 02:05 | NUR ---
DR PLASENCIA NOTIFIED OF PATIENT HGB AND VITAL SIGNS. MD STATES TO CONTINUE TO MONITOR PATIENT AND DO REPEAT BLOOD DRAW AROUND 0500/0600 THIS MORNING. MD ALSO STATES TO NOTIFY HIM IF PATIENT CONTINUES TO WORSEN. MD WITH NO FURTHER ORDERS AT THIS TIME. CALL ENDED.
[2025-03-14 02:32] LABS: ABO A; ANTIBODY SCREEN NEGATIVE; RH POSITIVE
[2025-03-14] MEDS ORDERED: PANTOPRAZOLE SODIUM 40 MG/10 ML VIAL IV SCH (02:35)
--- NOTE | 2025-03-14 03:08 | NUR ---
PATIENT WITH AN X-LARGE AMOUNT OF DARK RED BLOOD. BLOOD PRESSURE TAKEN AND WAS 75/61 WITH A MAP OF 65. DR PLASENCIA NOTIFIED. STATES HE IS ON HIS WAY IN TO SEE PATIENT.
--- NOTE | 2025-03-14 03:35 | NUR ---
PATIENT TRANSFERED TO CCU. REPORT GIVEN TO SHARMILA LAI.
--- NOTE | 2025-03-14 03:38 | NUR ---
PATIENT ARRIVED TO CCU VIA XFER. REPORT RECEIVED FROM ECTOR DOLL. PATIENT IS AAOX4. MD INTO SEE PATIENT. PATIENT IS ON 2L VIA MS. PATIENT PLACED ON MONITOR. PATIENT DENIES ANY PAIN.
[2025-03-14] MEDS ORDERED: PROTAMINE SULFATE 50 MG/5 ML VIAL IV ONE ×4 (03:45→04:00)
[2025-03-14 03:54] LABS: ABO A; RH POSITIVE
--- NOTE | 2025-03-14 04:09 | NUR ---
MD IN ROOM TO EVAL PATIENT. SCHEDULED MEDICATION GIVEN PER ORDER. PATIENT REPORTS NAUSEA AND IS DRY HEAVING, PRN MEDICATION GIVEN PER ORDER.
--- NOTE | 2025-03-14 04:21 | NUR ---
PATIENT HAD LARGE LIQUID INCONT DARK RED STOOL. MD AWARE. WANDA CARE COMPLETED. PATIENT REPOSITIONED IN BED. PATIENTS BLOOD DOUBLE VERIFIED WITH FOREIGN RN. PATIENTS 1ST UNIT OF PRBC STARTED PER ORDER. PATIENT IS RESTING IN BED WITH EYES CLOSED AND DENIES ANY NEEDS. ASSESMENT COMPLETED. THIS RN REMAINS IN ROOM. PATIENT IS ON 2L VIA NC. SCHULTE IN PLACE. SCHULTE EMPTIED AND OUTPUT RECORDED.
--- NOTE | 2025-03-14 05:17 | NUR ---
PATIENTS HR INCREASED TO 180S. JOSE GUADALUPE DAWKINS RN CALLING
--- NOTE | 2025-03-14 05:22 | NUR ---
PATIENT NOTED TO BE IN AFIB WITH HR RANGING FROM 150S-180. THIS RN TO ROOM TO ASSIST PRIMARY RN, MING. PATIENT COMPLAINS OF CHEST PAIN BUT STATED IT IS HER NORMAL CHEST PAIN, NOT NEW. CALL PLACED TO DR. PLASENCIA AND UPDATED ON CHEST PAIN, NO S/S OF TRANSFUSION REACTION, VS AND HR/RHYTHM. VERBAL ORDER READ BACK FOR 20MG CARDIZEM IVP. PRIMARY RN UPDATED ON ORDER.
--- NOTE | 2025-03-14 05:29 | NUR ---
PATIENT GIVEN ONE TIME DOSE OF CARDIZEM FOR HR IN THE 160-180'S. PATIENT RATES BACK PAIN AT A 10/10, PRN PAIN MEDICATION GIVEN PER ORDER. PATIENT DENIES ANY NAUSEA. PATIENTS BLOOD TRANSFUSION INFUSING AND NO S/SX OF TRANSFUSION REACTION NOTED. NAD NOTED. PATIENT DENIES ANY CHEST PAIN OR PALPITATIONS.
[2025-03-14] MEDS ORDERED: dilTIAZem HCL 25 MG/5 ML VIAL IV ONE (05:30)
[2025-03-14 05:33] LABS: IS CROSSMATCH COMPATIBLE
--- NOTE | 2025-03-14 05:52 | NUR ---
PLACED CALL TO MD ABOUT PATIENTS INCREASED HR. DIILT DRIP ORDER RECEIVED AND VERIFIED USING REAPEATBACK METHOD. DILT DRIP STARTED PER PROTOCOL. PATIENT IS RESTING IN BED. PATIENT IS ON OXYMASK 3L VIA NC. PATIENT REPORTS IMPROVEMENT IN PAIN. PATIENT DENIES ANY FURTHER NEEDS. CALL LIGHT IN REACH.
[2025-03-14] MEDS ORDERED: DILTIAZEM HCl/D5W 125 ML IV SCH (06:00)
[2025-03-14] MEDS ORDERED: NOREPINEPHRINE BITARTRATE 250 ML IV ONE (06:17)
[2025-03-14 06:18] LABS: BASOPHILS 0.3 % (0.1-1.2); EOSINOPHILS 0.4 % (0.7-5.8); HEMATOCRIT 33.7 % (34.1-44.9); HEMOGLOBIN 10.1 g/dL (11.2-15.7); LYMPHOCYTES 12.4 % (19.3-51.7); MCH 27.4 PG (25.6-32.2); MCV 91.6 fL (79.4-94.8); MONOCYTES 6.8 % (4.7-12.5); NEUTROPHILS 79.5 % (34.0-71.1); PLATELET COUNT 141 K/uL (182-369); RBC 3.68 M/uL (3.93-5.22)
--- NOTE | 2025-03-14 06:18 | NUR ---
PATIENTS HR CONTINUES TO BE IN THT 150-160 DESPITE TITRATION OF DILT DRIP. NEW ORDER TO BOLUS AND START LEVO DRIP FOR SOFT BP. VERIFIED ORDER USING REPEAT MERTHOD.
[2025-03-14] MEDS ORDERED: NOREPINEPHRINE BITARTRATE 250 ML IV SCH (06:30)
--- NOTE | 2025-03-14 06:31 | NUR ---
PATIENT REQUESTS CALL TO FRIEND LIVIA TO UPDATE. LIVIA UPDATED AND WILL BE IN TO SEE PATIENT BRYAN.
[2025-03-14 06:34] LABS: ALBUMIN 1.7 g/dL (3.4-5.0); ALBUMIN/GLOBULIN RATIO 0.59 (1.1-2.4); ANION GAP 6.5 (7-21); BILIRUBIN, TOTAL 0.4 mg/dL (0.2-1.0); BUN/CREATININE RATIO 40.29 (6.0-28.6); CREATININE, SERUM 0.67 mg/dL (0.55-1.02); POTASSIUM 4.5 mmol/L (3.5-5.1); PROTEIN, TOTAL 4.6 g/dL (6.4-8.2)
--- NOTE | 2025-03-14 06:36 | NUR ---
PATIENT'S BROTHER OTTONIEL CALLED PER HER REQUEST ([phone]). PATIENT REQUESTED THIS RN UPDATE HIM ON HER CONDITION. UPDATED OTTONIEL. HE REPORTS HE WILL ATTEMPT TO VISIT LATER TODAY.
--- NOTE | 2025-03-14 06:49 | NUR ---
ERINN AT BEDSIDE TO EVAL PATIENT. PATIENT TITRATED TO 3L VIA OXYMASK.NO NEW ORDERS AT THIS TIME.
--- NOTE | 2025-03-14 06:56 | NUR ---
PATIENTS 1ST UNIT OF PRBC COMPLETED INFUSING. PATIENTS SCEOND UNIT OF BLOOD STARTED PER ORDER.
[2025-03-14] MEDS ORDERED: MAGNESIUM SULFATE 2 GM/50 ML BAG IV SCH (07:00)
--- NOTE | 2025-03-14 07:14 | NUR ---
PATIENT INCONT LARGE LOOSE MAGENTA COLORED STOOL. PATIENT REPOSITIONED IN BED. PATIENT REMAINS ON MULTIPLE DRIPS AND RECEIVEING BLOOD. PATIENT REMAINS ON 4L VIA OM. PATIENT RATES PAIN AT A 4/10 AND DENIES THE NEED FOR INTERVENTION AT THIS TIME.
--- NOTE | 2025-03-14 07:55 | NUR ---
DR. PLASENCIA IN ROOM AT THIS TIME AND FAMILY IS PRESENT IN THE ROOM. PT'S SON HAS ARRIVED WITH A YOUNG CHILD, AND HER POA DERECK HAS ARRIVED. PT CURRENTLY ON LEVOPHED AT 1 MCG/MIN, IVF AT 125 ML/HR, DILT GTT AT 15 MG/HR, AND 2ND UNIT OF PRBCs INFUSING AT 150 ML/HR. ALL OF THESE INFUSIONS ARE GOING THROUGH HER RIGHT IJ CENTRAL LINE. PT IS AWAKE, TALKING AND RECOGNIZES DR. PLASENCIA WHEN HE ARRIVES TOT HE ROOM. PT ON 3 L OXYMASK AND SP02 IS 97%. PT IS IN AFIB WITH HR IN THE 130-140s. PT'S SKIN IS COOL AND PALE. WILL CONTINUE TO MONITOR CLOSELY.
--- NOTE | 2025-03-14 10:09 | NUR ---
WHEN I CAME IN FOR A PT STAFF SHARED THAT PT HAD REQUESTED PASTORAL CARE. PT WAS AWAKE WITH EYES CLOSED WHEN I CAME IN. PT DID NOT WANT TO TALK BUT REQUESTED PRAYER. PRAYED WITH PT. STAYED WITH PT 2-3 MINUTES IN SILENCE BEFORE LEAVING.
--- NOTE | 2025-03-14 12:28 | NUR ---
PATIENT HELPED TO REPOSITION IN BED BY USING GREEN LIFT SHEET TO RAISE HER UP IN BED AND LET HER LAY ON LEFT SIDE. PT DID HAVE MEDIUM SIZED LIQUID MELENA AND NEW ATTENDS WAS PLACED. PT REMAINS ON WAFFLE OVERLAY. SCHULTE CATH DRAINING CLEAR YELLOW URINE. PT ALSO REMAINS ON DILT GTT AT 15 MG/HR, AND LEVOPHED AT 1 MCG/MIN. IVF ALSO CONTIUE AT 125 ML/HR. PT'S GRANDDAUGHTERS AND HER BROTHER REMAIN IN ROOM. CBC DRAWN AND SENT TO LAB-RESULTS PENDING.
[2025-03-14 12:34] LABS: BASOPHILS 0.2 % (0.1-1.2); EOSINOPHILS 0.2 % (0.7-5.8); HEMOGLOBIN 10.3 g/dL (11.2-15.7); LYMPHOCYTES 15.7 % (19.3-51.7); MCH 27.2 PG (25.6-32.2); MCHC 30.3 g/dL (32.2-35.5); MCV 89.9 fL (79.4-94.8); MONOCYTES 6.9 % (4.7-12.5); NEUTROPHILS 76.6 % (34.0-71.1); PLATELET COUNT 137 K/uL (182-369); RBC 3.78 M/uL (3.93-5.22)
--- NOTE | 2025-03-14 14:27 | NUR ---
PATIENT CALLING FOR HELP TO BE REPOSITIONED IN BED AND STATES, "WE'VE GOT TO DO SOMETHING ABOUT THIS BED." PATIENT HELPED TO SIT UP AND REPOSOTIONED HIPS TO A MORE COMFORTABLE SPOT. PT ALSO ASKING FOR PRN PAIN MEDICATION AND WAS MEDICATED PER EMAR. PT'S DAUGHTER AND GRANDDAUGHTER THEN ARRIVE AND ARE GIVEN AN UPDATE ON PATIENT'S STATUS. PT REMAINS IN AFIB-DILT GTT AT 15 MG/HR, LEVOPHED AT 1 MCG/MIN, AND IVF AT 125 ML/HR. WILL CONTINUE TO MONITOR.
[2025-03-14] MEDS ORDERED: LIDOCAINE & ANTACID 35 ML BTL PO ONE (14:45)
[2025-03-14] MEDS ORDERED: HYDROmorphone HCL 2 MG/ML VIAL IV PRN (15:00)
[2025-03-14] MEDS ORDERED: SUCRALFATE 1 GM TAB PO SCH (16:00)
--- NOTE | 2025-03-14 17:32 | NUR ---
BED BATH GIVEN AND NEW SHEETS PLACED UNDER PATIENT. PATIENT TOLERATED WELL. NOREPI TURNED OFF AT THIS TIME AND WILL MONITOR BPs. LAST BP 104/61 (73). PT RATING PAIN BETTER THAN BEFORE AND IS RESTING.
[2025-03-14] MEDS ORDERED: LORazepam 2 MG/ML VIAL IV PRN (18:45)
[2025-03-14] MEDS ORDERED: ARTIFICIAL TEARS 15 ML BTL OU PRN ×2 (18:45→19:00)
[2025-03-14] MEDS ORDERED: ATROPINE SULFATE 1% OPTH DROPS SL PRN (18:45)
[2025-03-14] MEDS ORDERED: MORPHINE SULFATE 10 MG/ML VIAL IV PRN (18:45)
[2025-03-14] MEDS ORDERED: ondansetron HCL 4 MG/2 ML VIAL IV PRN (18:45)
[2025-03-14] MEDS ORDERED: MORPHINE SULFATE 4 MG/ML VIAL IV PRN ×2 (18:45)
--- NOTE | 2025-03-14 18:56 | NUR ---
DERECK, PATIENT'S POA ARRIVES BACK IN UNIT AND STATES THAT ALL PATIENT'S FAMILY HAS HAD THE OPPORTUNITY TO SEE HER AND VISIT HER, AND NOW SHE WOULD LIKE TO STOP ALL INTERVENTIONS AND TRANSITION PATIENT TO COMFORT MEASURES. YORDYN AGREEABLE TO THIS AND EMPHASIZES THAT SHE WANTS TO HAVE MORE PAIN MEDICATION TO HELP HER PAIN. PRN DOSE OF DILAUDID GIVEN. DILT GTT NOW AT 10 MG/HR AND WILL TITRATE DOWN TO OFF.
--- NOTE | 2025-03-14 19:33 | NUR ---
RECEIVED REPORT FROM DAY SHIFT RN. PATIENT IS RESTING IN BED WITH EYES CLOSED, RR 10. NAD NOTED. CALL LIGHT.
--- NOTE | 2025-03-14 20:44 | NUR ---
PATIENT CAN BE HEARD MOANING. PATIENT RATES PAIN AT A 10/10 IN HER BACK, PRN PAIN MEDICATION GIVEN PER ORDER. PATIENT REPOSITIONED IN BED. ORAL CARE COMPLETED. PATIENT DENIES ANY NAUSEA. PATIENT DENIES ANY FURTHER NEEDS. CALL LIGHT IN REACH.
--- NOTE | 2025-03-14 22:17 | NUR ---
PATIENT IS RESTING IN BED WITH EYES CLOSED, RR 18. NAD NOTED. CALL LIGHT IN REACH.
--- NOTE | 2025-03-14 22:54 | NUR ---
PATIENT CAN BE HEARD MOANING FROM RN STATION. PATIENT APPEARS TO BE IN PAIN. PATIENT OPENED EYES BRIEFLY BUT DOSE NOT ANSWER ANY QUESTIONS. PATIENT REPOSITIONED IN BED. PATIENT NOTED TO HAVE MOTTLING ON BILAT LOW EXT. PAIENT CONTINUES TO MOAN, PRN PAIN MEDICATION GIVEN PER ORDER. PATIENTS DILT NOW STOPPED PER ORDER. PATIENT REMAINS ON 2L VIA NC FOR COMFORT. ORAL CARE COMPLETED. WARM BLANKET AND PRAYER SHAWL BLANKET PROVIDED. NO FURTHER NEEDS NOTED. CALL LIGHT IN REACH.
--- NOTE | 2025-03-14 23:41 | NUR ---
PATIENT CAN BE HEARD MOANING FROM RN STATION. PATIENT REPOSITIONED IN BED. PATIENT SHAKES HEAD YES WHEN THIS RN ASKS PATIENT ABOUT PAIN, PRN PAIN MEDICATION GIVEN PER ORDER.
--- NOTE | 2025-03-15 02:19 | NUR ---
PATIENT IS RESTING IN BED WITH EYES CLOSED, RR 18. NAD NOTED.
[2025-03-15] MEDS ORDERED: SCOPOLAMINE 1 MG/3 DAYS PATCH 1 EACH TDSY TD SCH (04:00)
--- NOTE | 2025-03-15 04:16 | NUR ---
PATIENT NOTED TO HAVE INCREASED HR AND RR. PATIENT REPOSITIONED IN BED. PATIENT GIVEN PRN COMFORT MEDICATION GIVEN PER ORDER. ORAL CARE COMPLETED. SCOPE PATCH PLACED BEHIND PATIENTS LEFT EAR. NO FURTHER NEEDS NOTED. CALL LIGHT IN REACH.
--- NOTE | 2025-03-15 05:45 | NUR ---
PATIENT NOTED TO HAVE INCREASED RR AND HR. PATIENT REPOSITIONED AND GIVEN PRN MEDICATION FOR COMFORT. ORAL CARE COMPLETED. NO FURTHER NEEDS NOTED. CALL LIGHT IN REACH.
--- NOTE | 2025-03-15 06:25 | NUR ---
PATIENT NOTED TO HAVE INCREASED RR, PRN MEDS GIVEN PER ORDER. PATIENT IS RESTING IN BED. ORAL CARE COMPLETED. PATIENT IS ON RA. NO FURTHER NEEDS NOTED.
--- NOTE | 2025-03-15 07:30 | NUR ---
report from robert peterson, pt on comfort care resting in bed. monitors silenced. pt on room air, eyes closed, has slight rattle in lungs. tom draining scant amt of dark urine. pt extremitys warm x4 with faint pulses. resp fast and even. call light in reach- curtain open. oral care done and face washed.
--- NOTE | 2025-03-15 08:26 | NUR ---
LEFT MESSAGE FOR AMANDA PORTILLO AT [facility] REGARDING THE GUARDIANSHIP OF THE PATIENT GRANDDAUGHTERS.
--- NOTE | 2025-03-15 09:22 | NUR ---
a man walked in to pt room he said his name was audrey and was her son. I had never met or heard of him, I added his name and phone number to jose m. I finished giving pt iv protonix and answered questions about pt current status. I re assured him that she was clean and comfortable and that his brother melody had been here. pt is unresponsive but I encouraged him to talk to Afia or hold hand if he wanted to. I offered him snacks from the comfort care tray, and encouraged him to sit with her and ask me any questions he had. Brother Melody then enters room and rn left them with pt. she appears comfortable and unchanged.
--- NOTE | 2025-03-15 09:32 | NUR ---
CALLED [facility], SPOKE WITH JANESSA REGARDING SITUATION WITH PATIENT AND GUARDIANSHIP OF HER GRANDDAUGHTERS. JANESSA WILL REACH OUT TO AMANDA TO HAVE HER RETURN CALL BRYAN.
--- NOTE | 2025-03-15 09:43 | NUR ---
RECVD CALL FROM AMANDA AT [facility] REGARDING CUSTODY OF THE PATIENT GRANDDAUGHTERS. AMANDA SAYS SHE HAS BEEN WORKING ON THIS CASE FOR THE PAST 3 MONTHS. SHE IS CURRENTLY ATTEMPTING TO ESCALATE TO A LEATHER STITCHER THE CASE HAS BEEN CLOSED AT THE SCREENING LEVEL. AMANDA STATES THAT THE PATIENTS WISHES OF LAST WEEK WAS FOR THE FATHER TO TAKE OVER CARE WHICH WILL NOT BE AN OPTION. ADVISED AMANDA THAT I HAVE SPOKE WITH THE FATHER WHO IS AWARE THAT THIS IS THE CASE. AFTER LONG DISCUSSION REGARDING THE CASE AMANDA WOULD LIKE CM RN CALL TO OPEN NEW SCREENING CASE ADVISING THAT THE PATIENT WILL LIKELY PASS SOON AND THAT THE GRANDDAUGHTER NEED PLACEMENT WITH 24 HOUR CARE. AMANDA WILL CALL BACK WITH UPDATE SOON POSSIBLE.
--- NOTE | 2025-03-15 10:07 | NUR ---
son audrey in room at pt side. no pt changes, used overhead lift and green slide sheet to lift pt right side and reposition pt and 2 pillows on right side to turn to left. ms and ativan given for comfort - pt grimaces with movement and previously was very uncomfortable in bed. pt looks more relaxed turned to left side and resting. resp 25, hr tachy and low o2 sats on room air. very scant urine in tom bag. pt dry. call light with pt and family.
--- NOTE | 2025-03-15 10:53 | NUR ---
CALL PLACED TO [facility] TO REPORT CASE. SPOKE WITH BIBI, ALL INFORMATION REGARDING THE PATIENT, GRANDDAUGHTERS AND CURRENT CONDITION OF THE PATIENT GIVEN. DEMOGRAPHIC INFORMATION FOR SON LEANDRA GIVEN. PER BIBI CASE FOR NEGLECT OPEN WITH URGENT 24 HOUR REVIEW NOTED. . CASE MANAGEMENT DIRECT LINE GIVEN FOR FURTHER QUESTIONS AND UPDATES.
--- NOTE | 2025-03-15 11:01 | NUR ---
VISITED DURING SPIRITUAL CARE ROUNDS. PT APPEARED TO BE SLEEPING; DID NOT DISTURB. PROVIDED PRAYER.
--- NOTE | 2025-03-15 11:40 | NUR ---
dr barclay here, reviewed pt status, vitals and output with . plan to turn pt. at 1200. family is gone.
--- NOTE | 2025-03-15 11:50 | NUR ---
while rn at bedside to eval pt and prepare to turn her, she stopped breathing regularly and became apneic. rn observed pt to be restful in no distress. rn ascultated lungs and heart, no more breathing and no heart beat. dr barclay here on unit and to bedside to confirm. 1150 time confirmed. supervisor nut processing, and pastoral care called and here. dr. barclay attempted to call [employer] maylin - Business [employer] via [place] message, she is expected to be here after her appt. around 12:45. door and curtain closed and ice to eyes per supervisor nut processing via instructions from donor line.
--- NOTE | 2025-03-15 11:50 | NUR ---
CALL PLACED TO LIZ CHADWICK ASSIGNED AQUATIC SCIENTIST AT [facility] TO DISCUSS POSSIBLE ASSISTANCE WITH END OF LIFE PLANNING
--- NOTE | 2025-03-15 12:05 | NUR ---
NOTIFIED BY MEDICAL CHARGE ENTRY SPECIALIST JAYESH THAT PT HAD PASSED. NO FAMILY PRESENT. PROVIDED PRAYER OF COMMENDATION.
--- NOTE | 2025-03-15 12:45 | NUR ---
VISITED WITH FAMILY FRIEND DERECK AND NATIONAL PARK RANGER SYEDA. DERECK EXPRESSED SITUATIONALLY CONSISTED EMOTIONS, TALKED OF CONCERN FOR FAMILY AND END OF LIFE EXPENSES, STATING SHE THOUGHT RESOURCES WERE MINIMAL. NATIONAL PARK RANGER SYEDA PROVIDED SUGGESTIONS FOR SOURCES OF CONTACT, ADDITIONAL ANTICIPATORY GUIDANCE. AERIAL LINEMAN PROVIDED SUPPORTIVE PRESENCE, HOSPITALITY, PRAYER, FACILITATED INTERACTION WITH THERAPY ANIMAL. DERECK EXPRESSED GRATITUDE, APPRECIATION FOR CARE RECEIVED.
--- NOTE | 2025-03-15 13:12 | NUR ---
pt friend and leilani carlisle here. rn met her at the door and gave her the news about pt with sympathy. friend in to see pt. then rn gave maylin- pt clothing, purse, wallet, medications and eye glasses sent with LEILANI carlisle. returned in presense of , optical instruments supervisor and dc capacity planner. maylin with dc capacity planner kaiden at this time.
--- NOTE | 2025-03-15 13:42 | NUR ---
UR CLINICAL REVIEW: 2 MN FOR VERSALUS-PER MATERIALS CLERK MEETS INPT FOR AFIB WITH RVR/LUNG CA WILL NEED FOR TREATMENT FOR PAIN MEDICARE INPT 03/12/25 @ 1114 ORDER MATCHES REG NO AUTH REQUIRED PER MEDICARE GUIDELINES DISCHARGE DISPO HOME WITH HOSPICE
--- NOTE | 2025-03-15 14:49 | NUR ---
REFERRED BY SHARMILA CARRASQUILLO. ANYA MOBLEY IN ROOM ACCEPTED OFFER OF PASTORAL CARE VISIT. SON IS SITTING IN CHAIR NEXT TO HIS MOTHER'S BED, TEARFUL, STATES UNCERTAIN HOW TO FEEL, STRUGGLING TO PROCESS. CELL STRIPPER PROVIDED SUPPORTIVE PRESENCE, FACILITATED PROCESSING OF FEELINGS, GAVE ANTICIPATORY GUIDANCE, PROVIDED HOSPITALITY, PRAYER, FACILITATED INTERCTION WITH THERAPY ANIMAL. ESCORTED ANYA MOBLEY TO DOOR OF HOSPITAL UP ON HIS EXIT.
--- NOTE | 2025-03-15 14:52 | NUR ---
FAMILY IS NO PREFERENCE FOR HOME SO CONTACTED THE [employer] [facility] AT 1440. ALL BELONGINGS WENT WITH FRIEND
--- NOTE | 2025-03-15 15:35 | NUR ---
pt trsf via lift from bed to [facility], all belongings previously with kath carmona
--- NOTE | 2025-03-15 15:39 | NUR ---
[facility] OF [facility] ARRIVED 151. FAMILY ARRIVED FOR SOME FINAL GOODBIES 1515. FACILITATED TIME FOR FAMILY WITH PT. PROVIDED SUPPORTIVE PRESENCE, ANTICIPATORY GUIDANCE, PRAYER. FAMILY EXPRESSED GRATITUDE, GRIEF. SHARMILA CARRASQUILLO ASSISTED WITH TRANSFER OF BODY FROM BED TO STRETCHER. BODY LEFT IN CARE OF [facility] 1539.
[2025-03-17] MEDS ORDERED: SCOPOLAMINE 1 MG/3 DAYS PATCH 1 EACH TDSY TD SCH (09:00)
== END 2025-03-15 15:35 | DRG 641 ==
LOC: ED 19:20 → CCU 19:22 → MS 19:22 → CCU 03-12 10:43 → MS 03-12 22:00 → CCU 03-14 03:30
PROVIDERS: Family Medicine; ADMIT Family Medicine; ATTEND Family Medicine
PROC: 30233N1 Transfusion of Nonautologous Red Blood Cells into Peripheral Vein, Percutaneous Approach (ICD-10-PCS; principal; 2025-03-12)
PROC: 3E033XZ Introduction of Vasopressor into Peripheral Vein, Percutaneous Approach (ICD-10-PCS; 2025-03-12)
DX: E83.42 Hypomagnesemia (principal); K92.2 Gastrointestinal hemorrhage, unspecified; M84.48XA Pathological fracture, other site, initial encounter for fracture; I48.0 Paroxysmal atrial fibrillation; Z66 Do not resuscitate; G89.3 Neoplasm related pain (acute) (chronic); Z51.5 Encounter for palliative care; E87.6 Hypokalemia; Z90.5 Acquired absence of kidney; J44.9 Chronic obstructive pulmonary disease, unspecified; I45.19 Other right bundle-branch block; F17.210 Nicotine dependence, cigarettes, uncomplicated; Z90.710 Acquired absence of both cervix and uterus; Z90.89 Acquired absence of other organs; Z98.890 Other specified postprocedural states; Z88.0 Allergy status to penicillin; Z91.018 Allergy to other foods; Z79.899 Other long term (current) drug therapy; Z85.118 Personal history of other malignant neoplasm of bronchus and lung; Z85.528 Personal history of other malignant neoplasm of kidney
CPT/HCPCS: 36415; 36556; 36592; 71045; 71260; 80053; 81001; 83735; 84100; 84484; 85025; 86850; 86900; 86901; 86922; 93005; 93010; 93306; 94760; 96366; 96367; 96372; 96376; 97162; 99285-25; A9270; G0378; J0612; J1171; J1650; J1720; J2060; J2270; J2405; J2470; J2720; J3475; J3480; J3490; J7040; J7060; J7121; P9016; Q9967